=== PATIENT | female | born 2000 | race African-American/Black ===

== ENCOUNTER 2024-07-25 08:21 | Emergency (ER) | payer OTHER, SELFPAY ==
[2024-07-25 08:30] VITALS: BP 125/76; PULSE 111; RESP 20; TEMP 36.7; O2SAT 99
--- OUTSIDE RECORDS SUMMARY | 2024-07-25 08:30 | XMS_ITS | Referral Summary ---
Author Organization [facility] Address [address] [place] [address] Care Team Providers Care Auto Repair Technician Name Role Phone Viviane Mcneill MD Unavailable Unknown, Notinfile Primary Care Provider Unavail able Allergies No known active allergies Medications vit 80-lbrs-mfdbe-d tee 27mg iron- 800 mcg-250 mg capsule Take by mouth Active valACYclovir (VALTREX) 500 mg tablet Take 1 tablet (500 mg total) by mouth 2 (two) times a day 30 tablet 3 Active oxyCODONE (ROXICODONE) 5 mg immediate release tabletIndicatio ns:Pain Take 1 tablet (5 mg total) by mouth every 4 (four) hours as needed for pain 20 tablet 3 Active polyethylene glycol (MIRALAX) 17 gram/dose powder Take 17 g by mouth daily as needed (constipation) 238 g 3 Active acetaminophen 500 mg capsuleIndicati ons:Pain Take 2 capsules (1,000 mg total) by mouth every 6 (six) hours as needed (pain) 90 tablet 3 Active docusate sodium (COLACE) 100 mg capsuleIndicati ons:constipatio n,Stool Softener Take 1 capsule (100 mg total) by mouth 2 (two) times a day as needed for constipation 60 capsule 3 Active ibuprofen (ADVIL,MOTRIN) 600 mg tabletIndicatio ns:Cramps Take 1 tablet (600 mg total) by mouth every 6 (six) hours as needed for pain 90 tablet 3 Active HYDROcodone-edward taminophen (NORCO) 5-325 mg per tabletIndicatio ns:Pain Take 1 tablet by mouth every 6 (six) hours as needed for pain for up to 6 doses 6 tablet 4 Active doxylamine-pyri doxine, vit B6, (DICLEGIS) 10-10 mg tablet Take 1 tablet by mouth nightly as needed for nausea 30 tablet 4 Active ondansetron (ZOFRAN) 4 mg tablet Take 1 tablet (4 mg total) by mouth every 6 (six) hours 12 tablet 4 Active Active Problems Problem Noted Date Diagnosed Date Normal labor 06/08/2022 care following delivery 05/21 Overview (06/11/2022): # ID: Afebrile. No signs/symptoms of infection. #COVID-19: Test not indicated # Heme: EBL 600 mL. No symptoms acute blood loss anemia. POD#1 Hgb 8.9. # CV/Pulm: Vital signs stable, within normal limits. Normotensive # GI/: Tolerating PO. Voiding spontaneously. # Pain: Controlled with above regimen. # Post DVT prophylaxis: The patient has the following MAJOR risk factors none and the following MINOR risk factors delivery. SCDs ordered for VTE prophylaxis. # MOC: Depo-provera, given 06/09 # MOF: . Urine drug screen not indicated. Patient informed of results: N/A. # COVID Vaccination Status: Not previously received: I decline to share my reason for not getting the vaccine # Disposition: Follow up task sent to [facility] scheduling pool. Continue routine care. Pt plans d/c on POD#4 d/t baby not being cleared for discharge yet. #Yeast Infection: s/p 150mg PO Diflucan given in [facility] #BV Infection: Flagyl 500 mg BID ordered Breech presentation 06/01/2022 Overview (06/01/2022): Noted on 05/30 US and counseled Pt plans for primary C/S Assessment & Plan (06/01/2022 4:04 PM INTAKE COORDINATOR): Counseled on risks of C/S including increased risk of bleeding, infection, damage to other organs and scar tissue. growth restriction antepartum 04/09/2022 Overview (06/01/2022): History -Dating: LMP=1T US (LMP 09/09/21, 1T US on 12/09/21 @13w0d) -Genetic screening: NIPT high risk for T21 -No history of viral syndrome in -BP normotensive, no history of hypertension or other co-morbidities -US @22w2d EFW at 6%michelle [place] US 04/06: EFW 1170g (4%), AC 13%, driven by long bones (humerus + femur short), UAD PI 1.39 (98%, elevated), previously counseled Recommendations [x] Amniocentesis for DIGITAL STRATEGIST and CMV testing offered - declines [x] Offered serum CMV testing - declines - q3 week growths - 2x/weekly testing with 1x/weekly dopplers/BPP - [facility] precautions reviewed 05/30/2022: EFW 27%, AC 59%, PI wnl Chlamydia infection affecting , antepar fidencio 04/09/2022 Overview (06/01/2022): Positive on Pap 01/2022, s/p treatment [X] CHARLI in 4 weeks, 04/06/2022 Pap smear of cervix shows high risk HPV present 04/09/2022 Overview (04/09/2022): Pap 01/2022 NILM, HPV+ HPV testing not indicated based on her age, only recommended to be sent as reflex Follow up per her primary OBGYN. HSV infection 04/09/2022 Overview (06/01/2022): Documented in [facility] records. Patient denies this history. [] suppression medication sent to pharmacy, attempted to call pt after appt to discuss but no answer Maternal care for suspected chromosomal abnormality in fetus 03/15/2022 Overview (05/29/2022): History -NIPT high risk for trisomy 21 -AFP negative (0.78) -Carrier screening negative -s/p genetic counseling w/ Cora Bah -Declines amnio -previously counseled Recommendations [x] Offer amniocentesis - declines [x] options discussed [x] Medicine, referral placed - scheduled 04/24 at 10am via phone per pt preference Maternal varicella, non-immune 03/15/2022 Overview (04/09/2022): Per [facility] records, history of chicken pox at 5-6yo. For varivax PP. Supervision of high-risk , second trime ster 03/15/2022 Overview (06/02/2022): [x] Full [x] Blue Team- email for global sent 06/02 Referring Provider: Yariel Bird [phone] [] or Medicare Insurance [x] Dating Criteria: LMP 09/09/21 with ADRIANA 06/16/22 [x] Labs: Rh [B+], Ab [negative], Rubella [immune], HIV [non-reactive], HepBSAg [negative], RPR [non-reactive], Hep C [negative], Varicella [negative], GC/CT [GC negative/CT positive] [x] Genetic Screening: AFP negative, NIPT positive for Trisomy 21, CF negative [x] CBC/Hgb 11.9/34.9/plt 357 [x] UCx: 01/30/22 negative [x] Pap: 01/30/22: NILM; HPV positive, 16/18,14 negative [] LD ASA (if indicated) starting at 12 weeks: [x] EPDS [7]; PNBHS referral (if indicated) 2nd Tri Labs: [x] Anatomy ultrasound:normal, incomplete (lower ext) [] CBC/1hr gtt at 24-28wks: pt did not have done, accu check at 37w 77 [x] Flu Shot (Jan-Apr): declined s/p counseling 04/06 [] Tdap (27-36wks): [] COVID Vaccine: 3rd Tri Labs: [] CBC/HIV/RPR: discussed and ordered [x] GBS: positive [x] GC/CT (if indicated): negaitve/negative [] testing: recommend 2x/weekly in the setting of IGUR but pt has not been getting- will arrange for BPP and dopplers in 1 week Counseling [] MOD: C/S at 39 weeks for breech presentation, declines version- MFM RN to schedule- requested for 06/09 at 11:30 [x] Place of delivery: [facility]- pt request [x] MOC: Nexplanon [x] Method of feeding: likely formula but considering breast [x] Ssn/Ssbn Weapons Equipment Operator: discussed [] PP Depression Discussed: Immunizations Immunization Administration Dates Next Due Varicella 06/11/2022 Social History Tobacco Use Types Packs/Day Years Used Date Smoking Tobacco: Never Smokeless Tobacco: Never Tobacco Cessation:Counseling Given: Not Answered Social Connection and Isolat ion Panel [NHANES] Answer Date Recorded In a typical week, how many times do you talk on the phone with family, friends, or neighbors? More than three times a week 06/09/2022 How often do you get togethe r with friends or relatives? Three times a week 06/09/2022 How often do you attend chur ch or roman catholic services? Never 06/09/2022 Do you belong to any clubs o r organizations such as catholic groups, unions, fraternal or athletic groups, or school groups? No 06/09/2022 How often do you attend meet ings of the clubs or organizations you belong to? Never 06/09/2022 Are you , , di vorced, , never , or living with a partner? Never 06/09/2022 AUDIT-C Answer Date Recorded Q1: How often do you have a drink containing alc ohol? Never 06/08/2022 Average Number of Drinks Not on file 023 Frequency of Binge Drinking Not on file 05/21 Overall Financial Resource Strain (CARDIA) Answe r Date Recorded How hard is it for you to pa y for the very basics like food, housing, medical care, and heating? Not hard at all 06/09/2022 Hunger Vital Sign Answer Date Recorded Within the past 12 months, y ou worried that your food would run out before you got the money to buy more. Never true 06/09/19 23 Within the past 12 months, t he food you bought just didn't last and you didn't have money to get more. Never true 06/09/2022 PRAPARE - Transportation Answer Date Re corded In the past 12 months, has l ack of transportation kept you from medical appointments or from getting medications? No 05/22 In the past 12 months, has l ack of transportation kept you from meetings, work, or from getting things needed for daily living? No 06/09/2022 Housing Stability Vital Sign Answer Colt e Recorded In the last 12 months, was t here a time when you were not able to pay the mortgage or rent on time? No 06/09/2022 In the last 12 months, how many places have you lived? 0 06/09/2022 In the last 12 months, was t here a time when you did not have a steady place to sleep or slept in a halfway (including now)? No 06/09/2022 Personal Safety Answer Date Recorded Have you ever been in or are you currently in a harmful physical or emotional relationship or is someone making you feel afraid or unsafe? Denies 07/15/2023 Comments No Sex and Gender Information Value Date Recorded Sex Assigned at Not on file Legal Sex Female 12:23 PM INTAKE COORDINATOR Gender Identity Not on file Sexual Orientation Not on file Last Filed Vital Signs Vital Sign Reading Time Taken Comments Blood Pressure 136/71 07/15/2023 12:30 PM INTAKE COORDINATOR Pulse 78 07/15/2023 12:30 PM INTAKE COORDINATOR Temperature 37.1 C (98.7 F) 07/15/2023 9:11 AM INTAKE COORDINATOR Respiratory Rate 16 07/15/2023 12:30 PM INTAKE COORDINATOR Oxygen Saturation 100% 07/15/2023 12:30 PM INTAKE COORDINATOR Inhaled Oxygen Concentration - - Weight 77.1 kg (170 lb) 07/15/2023 9:11 AM INTAKE COORDINATOR Height 167.6 cm (5' 6 ) 07/15/2023 9:11 AM INTAKE COORDINATOR Body Mass Index 27.44 07/15/2023 9:11 AM INTAKE COORDINATOR Plan of Treatment Not on file Procedures Procedure Name Priority Date/Time Associated Diagnosis Comments HEPATITIS C ANTIBODY Routine 01/30/2022 from Last 3 Months or Most Recently Relevant to Health Maintenance Results * Hepatitis C antibody (01/30/2022) SCRIBED HCV ab negative Blood Yariel Bird MD LAB MICROBIOLOGY - GEN ERAL ORDERABLES Final Result from Last 3 Months or Most Recently Relevant to Health Maintenance Insurance [address] [place], [facility] [facility] Advance Directives For more information, please contact: [phone] * Full Code (Latest Code Status on File) Date Activated Date Inactivated Comments 06/09/2022 4:51 AM 06/11/2022 9:15 PM * Full Code Date Activated Date Inactivated Comments 06/08/2022 8:21 PM 06/09/2022 4:51 AM Full CPR in case of cardiopulmonary arrest Care Teams Auto Repair Technician Relationship Specialty Start Date End Date Unknown, Notinfile PCP - General 10/31/21 Viviane Mcneill MD [address] [place] [address] [address] [facility] [address] [place] [address] Family Medicine 04/16/17
--- OUTSIDE RECORDS SUMMARY | 2024-07-25 08:30 | XMS_ITS | Clinical Summary ---
Author Organization [facility] Address [address] [place] [address] Care Team Providers Care Convention Worker Name Role Phone Viviane Mcneill MD Unavailable Unknown, Notinfile Primary Care Provider Unavail able Allergies No known active allergies Medications vit 70-tmbl-fuyrl-d tee 27mg iron- 800 mcg-250 mg capsule [...] # Disposition: Follow up task sent to [facility] scheduling pool. Continue routine care. Pt plans d/c on POD#4 d/t baby not being cleared for discharge yet. #Yeast Infection: s/p 150mg PO Diflucan given in [facility] #BV Infection: Flagyl 500 mg BID ordered Breech presentation 06/01/2022 Overview (06/01/2022): Noted on 05/30 US and counseled Pt plans for primary C/S Assessment & Plan (06/01/2022 4:04 PM INFORMATION SERVICES VICE PRESIDENT): Counseled on risks of C/S including increased risk of bleeding, infection, damage to other organs and scar tissue. growth restriction antepartum 04/09/2022 Overview (06/01/2022): History -Dating: LMP=1T US (LMP 09/09/21, 1T US on 12/09/21 @13w0d) -Genetic screening: NIPT high risk for T21 -No history of viral syndrome in -BP normotensive, no history of hypertension or other co-morbidities -US @22w2d EFW at 6%michelle [place] US 04/06: EFW 1170g (4%), AC 13%, driven by long bones (humerus + femur short), UAD PI 1.39 (98%, elevated), previously counseled Recommendations [x] Amniocentesis for CASUALTY INSURANCE CLAIM ADJUSTER and CMV testing offered - declines [x] Offered serum CMV testing - declines - q3 week growths - 2x/weekly testing with 1x/weekly dopplers/BPP - [facility] precautions reviewed 05/30/2022: EFW 27%, AC 59%, [...] global sent 06/02 Referring Provider: Yariel Bird [phone] [] or Medicare Insurance [x] Dating Criteria: [...] feeding: likely formula but considering breast [x] Debone Supervisor: discussed [] PP Depression Discussed: Immunizations Immunization Administration Dates Next Due Varicella 06/11/2022 Medical History Medical History Date Comments HSV (herpes simplex virus) infection per records Maternal varicella, non-immune Social History Tobacco Use Types Packs/Day Years [...] often do you attend chur ch or methodist services? Never 06/09/2022 Do you belong to any clubs o r organizations such as sabianism groups, unions, fraternal or athletic groups, or [...] on file Legal Sex Female 12:23 PM INFORMATION SERVICES VICE PRESIDENT Gender Identity Not on file Sexual Orientation Not on file Obstetrics History Para Term AB IAB SAB Ectopic Multiple Livin g Live Births 2 1 1 1 1 0 1 1 Date Outcome GA Total Labor Labor/2nd/3rd Weight Sex Type Anes PTL Kiesha A1 A5 Name Clin 2020 SAB 2022 Term 38w 6d 0h 02m 0h 02m 3.41 kg (7 lb 8.3 oz) F C-Sec tion Spinal N Livin g 3 9 OUMOU ,GIRL JAErika Graham MD Delivery Location:[facility] Main C ampus ([facility] L AND D PROCEDURE) Last Filed Vital Signs Vital Sign Reading Time Taken Comments Blood Pressure 136/71 07/15/2023 12:30 PM INFORMATION SERVICES VICE PRESIDENT Pulse 78 07/15/2023 12:30 PM INFORMATION SERVICES VICE PRESIDENT Temperature 37.1 C (98.7 F) 07/15/2023 9:11 AM INFORMATION SERVICES VICE PRESIDENT Respiratory Rate 16 07/15/2023 12:30 PM INFORMATION SERVICES VICE PRESIDENT Oxygen Saturation 100% 07/15/2023 12:30 PM INFORMATION SERVICES VICE PRESIDENT Inhaled Oxygen Concentration - - Weight 77.1 kg (170 lb) 07/15/2023 9:11 AM INFORMATION SERVICES VICE PRESIDENT Height 167.6 cm (5' 6 ) 07/15/2023 9:11 AM INFORMATION SERVICES VICE PRESIDENT Body Mass Index 27.44 07/15/2023 9:11 AM INFORMATION SERVICES VICE PRESIDENT Plan of Treatment Health Maintenance Due Date Last Done Comments Cervical Cancer Screening 1999 Depression Screening 1999 Regular Well Visit/Exam 18-64 2017 Varicella Vaccines (2 of 2 - 13+ 2-dose series) 07/09/2022 06/11/2022 DTaP/Tdap/Td Vaccine (5 - Td or Tdap) 02/14/2023 02/14/2013, 04/30/2007, 10/17/2006, Additional history exists Influenza Vaccine (#1) 2024 02/14/2013 Hepatitis B Screening Completed 10/17/2006 , 10/18/2005, 03/01/2005 HPV Vaccines Completed 02/19/2014, 03/23, 01/01/2009 Hepatitis C Screening Completed 01/30/2022 Pneumococcal vaccine <65 Aged Out No longer eligible based on patient's age to complete this topic Procedures Procedure Name Priority Date/Time Associated Diagnosis Comments HEPATITIS C ANTIBODY Routine 01/30/2022 from Last 3 Months or Most Recently Relevant to Health Maintenance Results * Hepatitis C antibody (01/30/2022) SCRIBED HCV ab negative Blood us Yariel Bird MD LAB MICROBIOLOGY - GEN ERAL ORDERABLES Final Result from Last 3 Months or Most Recently Relevant to Health [place] [id number] [employer] [facility] Advance Directives For more information, please contact: [phone] * Full Code (Latest Code Status on File) Date Activated Date Inactivated Comments 06/09/2022 4:51 AM 06/11/2022 9:15 PM * Full Code Date Activated Date Inactivated Comments 06/08/2022 8:21 PM 06/09/2022 4:51 AM Full CPR in case of cardiopulmonary arrest Care Teams Convention Worker Relationship Specialty Start Date End Date Unknown, Notinfile PCP - General 10/31/21 Viviane Mcneill MD [address] [facility] [place] [address] Family Medicine 04/16/17
--- OUTSIDE RECORDS SUMMARY | 2024-07-25 08:30 | XMS_ITS | Clinical Summary ---
Author Organization [facility] Address [address] [place] [id number] Care Team Providers Care Community Recreation Programmer Name Role Phone None, Provider MD Primary Care Provider Unavaila ble Allergies No known active allergies Medications No known medications Social History Tobacco Use Types Packs/Day Years Used Date Smoking Tobacco: Never Smokeless Tobacco: Never Tobacco Cessation:Counseling Given: Not Answered Alcohol Use Standard Drinks/Week Comments Never 0 (1 standard drink = 0.6 oz pur e alcohol) Humiliation, Afraid, Rape, and Kick questionnair e Answer Date Recorded Within the last year, have y ou been afraid of your partner or ex-partner? No 04/17/2022 Within the last year, have y ou been humiliated or emotionally abused in other ways by your partner or ex-partner? No Within the last year, have y ou been kicked, hit, slapped, or otherwise physically hurt by your partner or ex-partner? No 04/17/2022 Within the last year, have y ou been raped or forced to have any kind of sexual activity by your partner or ex-partner? No 04/17/2022 Estimated Date of Delivery Comme nts Yes 02/06/2024 Sex and Gender Information Value Date Recorded Sex Assigned at Not on file Legal Sex Female 12:35 PM CDT Gender Identity Not on file Sexual Orientation Not on file Last Filed Vital Signs Vital Sign Reading Time Taken Comments Blood Pressure 112/66 08/17/2023 5:00 PM CDT Pulse 96 08/17/2023 5:00 PM CDT Temperature 36.6 C (97.9 F) 08/17/2023 1:49 PM CDT Respiratory Rate 18 08/17/2023 5:00 PM CDT Oxygen Saturation 100% 08/17/2023 5:00 PM CDT Inhaled Oxygen Concentration - - Weight 77.1 kg (170 lb) 08/17/2023 1:49 PM CDT Height 167.6 cm (5' 6 ) 08/17/2023 1:49 PM CDT Body Mass Index 27.44 08/17/2023 1:49 PM CDT Plan of Treatment Health Maintenance Due Date Last Done Comments Cervical Cancer Screening Pap Smear (Age 21 to 29) Every 3 Years 1999 Cervical Cancer Screening 1999 Annual Physical 2002 Hepatitis C 2017 DTaP, Tdap and Td Vaccines (5 - Td or Tdap) 02/14/2023 02/14/2013, 04/30/2007, 10/17/2006, Additional history exists COVID-19 Vaccine (2023- season) 2024 Influenza Adult (#1) 2024 RSV Immunization or 60+ Years (1 - 1-dose 75+ series) 2074 Hepatitis B Vaccines Completed 10/17/2006, 10/18/2005, 03/01/2005 HPV Vaccines Completed 02/19/2014, 03/23, 01/01/2009 Meningococcal Vaccine Completed 04/13/2017, 013 Chlamydia Screening Females ages 16-24 Discontinued 04/17/2022 Meningococcal B Vaccine Aged Out No l onger eligible based on patient's age to complete this topic Pneumococcal Vaccine: Pediatrics (0 to 5 Years) and At-Risk Patients (6 to 64 Years) Aged Out No longer eligible based on patient's age to complete this topic RSV Immunizations Under 20 Months Aged Out No longer eligible based on patient's age to complete this topic Procedures Procedure Name Priority Date/Time Associated Diagnosis Comments CHLAMYDIA GC RNA STAT 04/17/2022 2:50 PM SHOE LINING FITTER ([facility]) from Last 3 Months or Most Recently Relevant to Health Maintenance Results * CHLAMYDIA GC RNA (04/17/2022 2:50 PM SHOE LINING FITTER) SPEC DESCRIPTION VAGINAL SPECIMEN 04/17/2022 2:58 PM SHOE LINING FITTER [facility] CHLAMYDIA RNA TMA NEGATIVE NEGATIVE 022 12:32 PM SHOE LINING FITTER [facility] Comment:PERFORMED BY NUCLEIC ACID AMPLIFICATION N.GONORRHOEAE RNA TMA NEGATIVE NEGATIVE 04/18/2022 12:32 PM SHOE LINING FITTER [facility] Comment:PERFORMED BY NUCLEIC ACID AMPLIFICATION VAGINAL STRUCTURE / Unknown 04/17/2022 2:50 PM SHOE LINING FITTER Douglas Pelaez MD MICROBIOLOGY - GENERAL ORD ERABLES Final Result [facility] [address] [place] [address], [place] [phone] [facility] [address] [place] [address], [place] [phone] from Last 3 Months or Most Recently Relevant to Health Maintenance Insurance [address] [address] Care Teams Community Recreation Programmer Relationship Specialty Start Date End Date None, Provider, PCP - General UNKNOWN PHYSICIAN SPECIALTY 03/05/22
--- OUTSIDE RECORDS SUMMARY | 2024-07-25 08:30 | XMS_ITS | Clinical Summary ---
Author Organization 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 10 Tab 05/16/2017 Active HYDROcodone-edward taminophen (NORCO) 5-325 MG TabletIndicatio ns:Closed fracture of tooth, initial encounter Take 1-2 Tablets by mouth every 6 hours as needed for Moderate or more severe pain. 12 Tablet 02/26/2021 Active Encounters Date Type Department Care Team Description 07/14/2024 Transcribe Orders [facility] Scheduling [address] [place] [address] Yariel Bird Pelvic and perineal pain (Primary Dx) from Last 3 Months Social History Tobacco Use Types Packs/Day Years Used Date Smoking Tobacco: Never Smokeless Tobacco: Never Alcohol Use Standard Drinks/Week Comments Yes 0 (1 standard drink = 0.6 oz pur e alcohol) occassionaly Comments No Sex and Gender Information Value Date Recorded Sex Assigned at Not on file Legal Sex Female 9:34 PM CDT Gender Identity Not on file Sexual Orientation Not on file Last Filed Vital Signs Vital Sign Reading Time Taken Comments Blood Pressure 118/64 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 Pulse 98 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 Temperature 37 C (98.6 F) 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 Respiratory Rate 16 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 Oxygen Saturation 100% 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 Inhaled Oxygen Concentration - - Weight 78 kg (172 lb) 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 Height 167.6 cm (5' 6 ) 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 Body Mass Index 27.76 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 Plan of Treatment Health Maintenance Due Date Last Done Comments Hepatitis C Virus (HCV) Screening 1999 Pap Smear 01/28/2020 Influenza Immunization (#1) 2024 02/14/2013 SARS-COV-2 Immunization ( season) 2024 Respiratory Syncytial Virus (RSV) Immunization (Adult) (1 - 1-dose 75+ series) 2074 Hepatitis B Immunization Completed 007, 10/18/2005, 03/01/2005 DTaP/Tdap/Td Immunization Discontinued 2012, 04/30/2007, 10/17/2006, Additional history exists TdaP Immunization Completed 02/14/2013 Human Papillomavirus (HPV) Immunization Completed 02/19/2014, 04/19/2011, 01/01/2009 Meningococcal Immunization (ACWY) Completed 04/13/2017, 02/14/2013 Pneumococcal Immunization Combined Aged Out No longer eligible based on patient's age to complete this topic Rotavirus Immunization Aged Out No lo nger eligible based on patient's age to [place] [address] [place] [address] MEDICAID [employer] [facility] Care Teams Plugger Man Relationship Specialty Start Date End Date Provider, None MIKAEL PCP - General 04/02/17
--- OUTSIDE RECORDS SUMMARY | 2024-07-25 08:39 | XMS_ITS | Data Portability ---
[facility] [address] [place] [address] Assessment No assessment recorded. Plan of Treatment Reminders Order Date Submit Date Provider Last Modified By Organization Details Last Modified Time Details Appointments None record ed. Lab cytolo gy report , thin prep, smear or scrapi ng, cervic al or vagina l 2024 025 [facility] 2022 Angela Becerra, [facility] [address], [place], [address], 5 11:21:57 HBsAg (hepat itis B surfac e Ag), EIA, serum 2024 025 [facility], [address] [place] [address] 2, [place], [address], 5 11:14:01 HIV 1 + 2, meanin gful use set 2024 025 [facility], [address] [place] [address] 2, [place], [address], 5 11:14:04 Hepati tis C IgG Ab, qual, serum 2024 025 [facility], [address] [place] [address] 2, [place], [address], 5 11:13:59 RPR (rapid plasma reagin ), serum 2024 025 [facility], [address] [place] [address] 2, [place], [address], 5 11:14:02 urinal ysis, dipsti ck 2023 024 [email or web address] In-Office Order, Internal Use Only DO Not Attach Compendium DO Not Attach Compendium, Do Not Delete/merge, [id number] 4 13:59:28 hemogl obin (Hb) electr ophore sis, blood 2023 024 [facility], [address] [facility], [facility] 2, [place], [address], 4 15:20:17 HIV 1 + 2, meanin gful use set 2023 024 [email or web address] [facility], [address] [facility], [facility] 2, [place], [address], 4 09:46:46 varice lla zoster virus IgG Ab, QN, IA, serum 2023 024 [facility], [address] [facility], [facility] 2, [place], [address], 4 15:20:18 urinal ysis comple te, reflex cultur e 2023 024 [facility], [address] [facility], [facility] 2, [place], [address], 4 15:20:18 drug screen , urine 2023 024 [facility], [address] [facility], [facility] 2, [place], [address], 4 15:20:18 CFTR gene mutati ons found, blood or tissue 2023 024 [email or web address], [address] [facility], [facility] 2, [place], [address], 4 15:20:18 Hepati tis C IgG Ab, qual, serum 2023 024 [facility], [address] [facility], [facility] 2, [place], [address], 4 15:20:19 prenat al panel 2023 024 [facility], [address] [facility], [facility] 2, [place], [address], 4 15:20:19 HCG, intact + beta subuni t, quant, serum or plasma 2023 024 [email or web address] [facility], 2022 Angela Becerra, [address], [place], [address], 4 16:31:14 chlamy mariah tracho matis + neisse claus gonorr hoeae + tricho monas vagina lis DNA panel, COURTNEY+pr obe, unspec ified specim en 2023 024 [place] [facility], 2022 Angela Becerra, [address], [place], [address], 4 07:14:53 urinal ysis, dipsti ck 2022 023 [email or web address] In-Office Order, Internal Use Only DO Not Attach Compendium DO Not Attach Compendium, Do Not Delete/merge, [id number] 3 15:13:54 cytolo gy report , thin prep, smear or scrapi ng, cervic al or vagina l 2022 023 JESSICA [facility], 2022 Angela Becerra, [address], [place], [address], 3 16:14:22 TSH + free T4, serum 2022 023 JESSICA [facility], 2022 Angela Becerra, [address], [place], [address], 3 11:12:47 HIV 1 + 2, meanin gful use set 2022 023 [place] [facility], 2022 Angela Becerra, [address], [place], [address], 3 11:12:49 RPR (rapid plasma reagin ), serum 2022 023 JESSICASHANAE [facility], 2022 Angela Becerra, [address], [place], [address], 3 11:12:48 HBsAg (hepat itis B surfac e Ag), EIA, serum 2022 023 [facility], 20[facility] Angela Becerra, [address], [place], [address], 3 11:12:48 Hepati tis C IgG Ab, qual, serum 2022 023 [place], [facility] Angela Becerra, [address], [place], [address], 3 11:12:45 HSV 2 IgG Ab, QN, IA, serum 2022 023 [facility], 2022 Angela Becerra, [address], [place], [address], 3 11:12:46 bacter ial vagino sis panel, vagina l 2021 022 [facility], 2022 Angela Becerra, [address], [place], [address], 2 07:12:44 candid a paraps ilosis DNA, genita l 2021 022 JESSICA [facility], 2022 Angela Becerra, [address], [place], [address], 2 07:12:44 TSH + free T4, serum 2021 022 [facility]HANAE [facility], 2022 Angela Becerra, [address], [place], [address], 2 11:15:49 CBC w/ auto diff 2021 JESSICA [facility], 2022 Angela Becerra, [address], [place], [address], 2 11:15:50 aneupl oidy risk and X & Y analys is, chromo some specif ic circul ating cell free (CCF) DNA, matern al serum 2021 JESSICA [facility], 2022 Angela Becerra, [address], [place], [address], 2 16:12:17 afp (alpha -fetop rotein ) panel, matern al screen , serum 2021 JESSICA [facility], 2022 Angela Becerra, [address], [place], [address], 2 07:12:42 obstet chaparro screen , serum or blood 2021 JESSICA [facility], 2022 Angela Becerra, [address], [place], [address], 2 16:12:16 hemogl obin (Hb) electr ophore sis, blood 2021 022 JESSICA [facility], 2022 Angela Becerra, [address], [place], [address], 2 16:12:15 HIV 1 + 2, meanin gful use set 2021 JESSICA [facility], 2022 Angela Becerra, [address], [place], [address], 2 16:12:19 varice lla zoster virus IgG Ab, QN, IA, serum 2021 JESSICA [facility], 2022 Angela Becerra, [address], [place], [address], 16:12:19 urinal ysis comple te, reflex cultur e 2021 [facility], 2022 Angela Becerra, [address], [place], [address], 07:11:57 drug screen , urine 2021 [facility], 2022 Angela Becerra, [address], [place], [address], 07:11:57 cf (cysti c fibros is) profil e 2021 [facility], 2022 Angela Becerra, [address], [place], [address], 16:12:18 hepati tis C Ab, signal -to-cu toff, serum or plasma 2021 [facility], 2022 Angela Becerra, [address], [place], [address], 16:12:16 cytolo gy report , thin prep, smear or scrapi ng, cervic al or vagina l 2021 [facility], 2022 Angela Becerra, [address], [place], [address], 07:12:33 urinal ysis, dipsti ck 2021 [place] [address] In-Office Order, Internal Use Only DO Not Attach Compendium DO Not Attach Compendium, Do Not Delete/merge, [id number] 15:11:12 pregna ncy test, urine 2021 [place] [address] In-Office Order, Internal Use Only DO Not Attach Compendium DO Not Attach Compendium, Do Not Delete/merge, [id number] 2 12:35:47 HCG, intact + beta subuni t, quant, serum or plasma 2021 022 [place] [facility], 2022 Angela Becerra, [place] [address], [place], [address], 2 07:12:07 Referral None record ed. Procedures None record ed. Surgeries None record ed. Imaging US, pelvis , transa bdomin al + transv aginal 2024 025 [place] [address] [facility]) Scheduling, [address] [place], [address], 5 16:25:38 US, obstet chaparro, 2nd trimes ter 2023 024 [facility]uling, [address] [place], [address], 4 17:39:41 US, pelvis , transa bdomin al + transv aginal [address] [facility]) Scheduling, [address] [place], [address], 4 17:30:04 US, obstet chaparro, matern al evalua tion + anatom y 2021 022 [place] [facility]) Scheduling, [address] [place], [address], 2 17:45:31 US, obstet chaparro, 1st trimes ter 2021 022 [facility] ([facility]), [address] [place], [address], 2 17:22:49 Medication Orders Sprint ec (28) 0.25 mg-35 mcg tablet 2022 023 [email or web address] Not available 11:31:33 Patient TargetsNo targets recorded. Patient Instructions Encounter Date Encounter Id Patient Instructions Last Modified By Organization Details Last Modified Time 01/30/2022 [id number] edinburgh depression scale* derek Not available 01/30/2022 17:13:27 01/01/2023 [id number] heavy menstrual periods: care instructions christophe Not available 01/01/2023 15:13:53 07/14/2024 [id number] A healthy lifestyle: care instructions christophe Not available 07/14/2024 16:25:38 Quitting Tobacco : Care Instructions [place] [id number] Not available 07/14/2024 16:25:38 Reason for Referral None Reported. Results Created Date Observation Date Name Description Value Unit Range Abnormal Flag Note LastModifiedBy Organization Detail LastModifiedTime 12/02/1912/02/2021 HCG,B ETA SUBUN IT, QNT HCG,beta subunit,qnt, serum 360179 mIU/m L Femal e (Non- pregn ant) 0 - 5 (Post menop ausal ) 0 - 8 Femal e (Preg nant) Weeks of Gesta tion 3 6 - 71 4 10 - 750 5 001 - 7338 6 158 - 17426 7 1077 -3654 63 8 80899 -3456 71 9 03086 -1514 10 10 62711 -1869 77 12 41712 -2106 12 14 38726 - 31185 15 40341 - 77592 16 4703 - 93982 17 0561 - 81612 18 2099 - 20001 Resul ts confi rmed on dilut ion. Leyla ECLIA metho dolog y Not Available [facility] ([facility]) [address] [facility], [place], [address], 12/02/2021 07:12:07 12/02/1912/01/2021 pregn jeancarlos test, urine HCG negati ve Not Available In-Office Order Internal Use Only DO Not Attach Compendium DO Not Attach Compendium, Do Not Delete/merge, [id number] 12/01/2021 08:49:26 01/31/2001/31/2022 TSH+F REE T4 TSH 1.680 uIU/m L 0.450- 4.500 Not Available [facility] ([facility]) [address] [place], [address], 01/31/2022 11:15:49 01/31/20 22 01/31/2022 TSH+F REE T4 T4,free(dire ct) 1.15 NG/dL 0.82-1 .77 Not Available [facility] ([facility]) [address] [place], [address], 01/31/2022 11:15:49 01/31/20 22 01/31/2022 CBC WITH DIFFE RENTI AL/PL ATELE T WBC 15.0 x10e3 /uL 3.4-10 .8 above high normal Not Available [facility] ([facility]) [address] [place], [address], 01/31/2022 11:15:50 01/31/20 22 01/31/2022 CBC WITH DIFFE RENTI AL/PL ATELE T RBC 4.03 x10e6 /uL 3.77-5 .28 Not Available [facility] ([facility]) [address] [place], [address], 01/31/2022 11:15:50 01/31/20 22 01/31/2022 CBC WITH DIFFE RENTI AL/PL ATELE T hemoglobin 12.2 g/dL 11.1-1 5.9 Not Available [facility] ([facility]) [address] [place], [address], 01/31/2022 11:15:50 01/31/20 22 01/31/2022 CBC WITH DIFFE RENTI AL/PL ATELE T hematocrit 36.2 % 34.0-4 6.6 Not Available [facility] ([facility]) [address] [place], [address], 01/31/2022 11:15:50 01/31/20 22 01/31/2022 CBC WITH DIFFE RENTI AL/PL ATELE T MCV 90 fL 79-97 Not Available [facility] ([facility]) [address] [facility], [place], [address], 01/31/2022 11:15:50 01/31/20 22 01/31/2022 CBC WITH DIFFE RENTI AL/PL ATELE T MCH 30.3 pg 26.6-3 3.0 Not Available [facility] ([facility]) [address] [facility], [place], [address], 01/31/2022 11:15:50 01/31/20 22 01/31/2022 CBC WITH DIFFE RENTI AL/PL ATELE T MCHC 33.7 g/dL 31.5-3 5.7 Not Available [facility] ([facility]) [address] [facility], [place], [address], 01/31/2022 11:15:50 01/31/20 22 01/31/2022 CBC WITH DIFFE RENTI AL/PL ATELE T RDW 12.8 % 11.7-1 5.4 Not Available [facility] ([facility]) [address] [place], [address], 01/31/2022 11:15:50 01/31/20 22 01/31/2022 CBC WITH DIFFE RENTI AL/PL ATELE T platelets 341 x10e3 /uL 150-45 0 Not Available [facility] ([facility]) [address] [place], [address], 01/31/2022 11:15:50 01/31/20 22 01/31/2022 CBC WITH DIFFE RENTI AL/PL ATELE T neutrophils 79 % not estab. Not Available [facility] ([facility]) [address] [place], [address], 01/31/2022 11:15:50 01/31/20 22 01/31/2022 CBC WITH DIFFE RENTI AL/PL ATELE T lymphs 14 % not estab. Not Available [facility] ([facility]) [address] [facility], [place], [address], 01/31/2022 11:15:50 01/31/20 22 01/31/2022 CBC WITH DIFFE RENTI AL/PL ATELE T monocytes 5 % not estab. Not Available [facility] ([facility]) [address] [facility], [place], [address], 01/31/2022 11:15:50 01/31/20 22 01/31/2022 CBC WITH DIFFE RENTI AL/PL ATELE T eos 1 % not estab. Not Available [facility] ([facility]) [address] [facility], [place], [address], 01/31/2022 11:15:50 01/31/20 22 01/31/2022 CBC WITH DIFFE RENTI AL/PL ATELE T basos 0 % not estab. Not Available [facility] ([facility]) [address] [facility], [place], [address], 01/31/2022 11:15:50 01/31/20 22 01/31/2022 CBC WITH DIFFE RENTI AL/PL ATELE T immature cells CORROSION TECHNICIAN Not Available [facility] ([facility]) [address] [facility], [place], [address], 01/31/2022 11:15:50 01/31/20 22 01/31/2022 CBC WITH DIFFE RENTI AL/PL ATELE T neutrophils (absolute) 11.9 x10e3 /uL 1.4-7. 0 above high normal Not Available [facility] ([facility]) [address] [place], [address], 01/31/2022 11:15:50 01/31/20 22 01/31/2022 CBC WITH DIFFE RENTI AL/PL ATELE T lymphs (absolute) 2.2 x10e3 /uL 0.7-3. 1 Not Available [facility] ([facility]) [address] [facility], [place], [address], 01/31/2022 11:15:50 01/31/20 22 01/31/2022 CBC WITH DIFFE RENTI AL/PL ATELE T monocytes(ab solute) 0.7 x10e3 /uL 0.1-0. 9 Not Available [facility] ([facility]) [address] [facility], [place], [address], 01/31/2022 11:15:50 01/31/20 22 01/31/2022 CBC WITH DIFFE RENTI AL/PL ATELE T eos (absolute) 0.1 x10e3 /uL 0.0-0. 4 Not Available [facility] ([facility]) [address] [facility], [place], [address], 01/31/2022 11:15:50 01/31/20 22 01/31/2022 CBC WITH DIFFE RENTI AL/PL ATELE T baso (absolute) 0.0 x10e3 /uL 0.0-0. 2 Not Available [facility] ([facility]) [address] [facility], [place], [address], 01/31/2022 11:15:50 01/31/20 22 01/31/2022 CBC WITH DIFFE RENTI AL/PL ATELE T immature granulocytes 1 % not estab. Not Available [facility] ([facility]) [address] [facility], [place], [address], 01/31/2022 11:15:50 01/31/20 22 01/31/2022 CBC WITH DIFFE RENTI AL/PL ATELE T immature grans (abs) 0.1 x10e3 /uL 0.0-0. 1 Not Available [facility] ([facility]) [address] [facility], [place], [address], 01/31/2022 11:15:50 01/31/20 22 01/31/2022 CBC WITH DIFFE RENTI AL/PL ATELE T NRBC CORROSION TECHNICIAN Not Available [facility] ([facility]) [address] [place], [place], [address], 01/31/2022 11:15:50 01/31/20 22 01/31/2022 CBC WITH ZHANE MORENO AL/MARIBEL ATELE T hematology comments: CORROSION TECHNICIAN Not Available [facility] ([facility]) [address], [place], [address], 01/31/2022 11:15:50 01/31/20 22 01/31/2022 AFP, SERUM , OPEN SPINA BIFID A results CORROSION TECHNICIAN Not Available [facility] ([facility]) [address] [place], [address], 02/01/2022 07:12:41 01/31/2001/31/2022 AFP, SERUM , OPEN SPINA BIFID A test results: TNP Pleas e refer to the [facility] wing speci men for addit ional lab resul ts. For resul ts refer to 255-3 16-23 69-0. Not Available [facility] ([facility]) [address], [place], [address], 02/01/2022 07:12:41 01/31/20 22 01/31/2022 AFP, SERUM , OPEN SPINA BIFID A gest. age on collection date CORROSION TECHNICIAN Not Available [facility] ([facility]) [address] [place], [address], 02/01/2022 07:12:41 01/31/2001/31/2022 AFP, SERUM , OPEN SPINA BIFID A gestat. age based on CORROSION TECHNICIAN Not Available [facility] ([facility]) [address] [place], [address], 02/01/2022 07:12:41 01/31/20 22 01/31/2022 AFP, SERUM , OPEN SPINA BIFID A maternal age at will[age] CORROSION TECHNICIAN Not Available [facility] ([facility]) [address] [place], [address], 02/01/2022 07:12:41 01/31/20 22 01/31/2022 AFP, SERUM , OPEN SPINA BIFID A race CORROSION TECHNICIAN Not Available [facility] ([facility]) [address] [facility] [place], [address], 02/01/2022 07:12:41 01/31/20 22 01/31/2022 AFP, SERUM , OPEN SPINA BIFID A weight CORROSION TECHNICIAN Not Available [facility] ([facility]) [address] [place], [address], 02/01/2022 07:12:41 01/31/20 22 01/31/2022 AFP, SERUM , OPEN SPINA BIFID A insulin dep diabetes CORROSION TECHNICIAN Not Available [facility] ([facility]) [address] [place], [address], 02/01/2022 07:12:41 01/31/20 22 01/31/2022 AFP, SERUM , OPEN SPINA BIFID A multiple gestation CORROSION TECHNICIAN Not Available [facility] ([facility]) [address] [place], [address], 02/01/2022 07:12:41 01/31/20 22 01/31/2022 AFP, SERUM , OPEN SPINA BIFID A AFP value TNP Test not perfo rmed Not Available [facility] ([facility]) [address] [place], [address], 02/01/2022 07:12:41 01/31/2001/31/2022 AFP, SERUM , OPEN SPINA BIFID A AFP MOM CORROSION TECHNICIAN Not Available [facility] ([facility]) [address] [place], [address], 02/01/2022 07:12:41 01/31/20 22 01/31/2022 AFP, SERUM , OPEN SPINA BIFID A OSBR risk 1 in CORROSION TECHNICIAN Not Available [facility] ([facility]) [address] [place], [address], 02/01/2022 07:12:41 01/31/20 22 01/31/2022 AFP, SERUM , OPEN SPINA BIFID A interpretati on CORROSION TECHNICIAN Not Available [facility] ([facility]) [address] [facility], [place], [address], 02/01/2022 07:12:41 01/31/20 22 01/31/2022 AFP, SERUM , OPEN SPINA BIFID A comment: CORROSION TECHNICIAN Not Available [facility] ([facility]) [address] [facility], [place], [address], 02/01/2022 07:12:41 01/31/2001/31/2022 AFP, SERUM , OPEN SPINA BIFID A tracking CORROSION TECHNICIAN Not Available [facility] ([facility]) [address] [facility], [place], [address], 02/01/2022 07:12:41 01/31/2001/31/2022 AFP, SERUM , OPEN SPINA BIFID A pdf CORROSION TECHNICIAN Not Available [facility] ([facility]) [address] [facility] [place], [address], 02/01/2022 07:12:41 01/31/2001/31/[address] PROBL EM request problem TNP Pleas e refer to the [facility] speci men for addit ional lab resul ts. TEST: [id number] 1 AFP, Serum , Open Spina Bifid a For resul ts refer to 255-3 16-23 69-0. Not Available [facility] ([facility]) [address] [facility], [place], [address], 02/01/2022 07:12:42 01/31/2001/31/2022 BACTE RIAL VAGIN OSIS, COURTNEY atopobium vaginae High - 2 score abnormal Not Available [facility] ([facility]) [address] [facility] [place], [address], 02/01/2022 07:12:44 01/31/20 01/31/2022 BACTE RIAL VAGIN OSIS, COURTNEY bvab 2 High - 2 score abnormal Not Available [facility] ([facility]) [address] [place], [address], 02/01/2022 07:12:44 01/31/20 22 01/31/2022 BACTE RIAL VAGIN OSIS, COURTNEY megasphaera 1 High - 2 score abnormal Calcu late total score by marco live the 3 indiv idual bacte rial vagin osis (BV) marke r score s toget her. Total score is inter prete d as follo ws: Total score 0-1: Indic ates the absen ce of BV. Total score 2: Indet ermin ate for BV. Addit ional clini jennie data shoul d be evalu ated to estab casandra a diagn osis. Total score 3-6: Indic ates the prese nce of BV. This test was devel oped and its perfo rmanc e augustus cteri stics deter mined by [facility]. It has not been clear ed or appro danna by the Food and Drug Admin istra tion. Not Available [facility] ([facility]) [address] [facility], [place], [address], 02/01/2022 07:12:44 01/31/20 22 02/01/2022 C ALBIC ANS + C GLABR IVÁN, COURTNEY stacy albicans, COURTNEY Positi ve negati ve abnormal Not Available [facility] ([facility]) [address] [place], [address], 02/01/2022 07:12:44 01/31/20 22 02/01/2022 C ALBIC ANS + C GLABR IVÁN, COURTNEY stacy glabrata, COURTNEY Negati ve negati ve Not Available [facility] ([facility]) [address] [place], [address], 02/01/2022 07:12:44 01/31/20 22 01/31/2022 MICRO SCOPI C EXAMI NATIO N WBC 11-30 /hpf 0-5 abnormal Not Available [facility] ([facility]) [address] [facility], [place], [address], 02/03/2022 07:11:56 01/31/20 22 01/31/2022 MICRO SCOPI C EXAMI NATIO N RBC 0-2 /hpf 0-2 Not Available [facility] ([facility]) [address] [facility], [place], [address], 02/03/2022 07:11:56 01/31/20 22 01/31/2022 MICRO SCOPI C EXAMI NATIO N epithelial cells (non renal) >10 /hpf 0-10 abnormal Not Available [facility] ([facility]) [address] [facility], [place], [address], 02/03/2022 07:11:56 01/31/20 22 01/31/2022 MICRO SCOPI C EXAMI NATIO N casts None seen /lpf nonese en Not Available [facility] ([facility]) [address] [facility], [place], [address], 02/03/2022 07:11:56 01/31/2001/31/2022 MICRO SCOPI C EXAMI NATIO N bacteria Many nonese en/few abnormal Not Available [facility] ([facility]) [address] [place], [address], 02/03/2022 07:11:56 01/31/20 22 01/31/2022 UA/M W/RFL X CULTU RE, ROUTI NE specific gravity 1.023 1.005- 1.030 Not Available [facility] ([facility]) [address] [place], [address], 02/03/2022 07:11:57 01/31/2001/31/2022 UA/M W/RFL X CULTU RE, ROUTI NE pH 7.0 5.0-7. 5 Not Available [facility] ([facility]) [address] [place], [address], 02/03/2022 07:11:57 01/31/20 22 01/31/2022 UA/M W/RFL X ELMER VERDIN urine-color Yellow yellow Not Available [facility] ([facility]) [address] [facility], [place], [address], 02/03/2022 07:11:57 01/31/2001/31/2022 UA/M W/RFL X ELMER VERDIN appearance Cloudy clear abnormal Not Available [facility] ([facility]) [address] [facility], [place], [address], 02/03/2022 07:11:57 01/31/2001/31/2022 UA/M W/RFL X ELMER VERDIN WBC esterase 2+ negati ve abnormal Not Available [facility] ([facility]) [address] [facility], [place], [address], 02/03/2022 07:11:57 01/31/20 22 01/31/2022 UA/M W/RFL X ELMER VERDIN protein 1+ negati ve/tra ce abnormal Not Available [facility] ([facility]) [address] [place], [address], 02/03/2022 07:11:57 01/31/20 22 01/31/2022 UA/M W/RFL X ELMER VERDIN glucose Negati ve negati ve Not Available [facility] ([facility]) [address] [place], [address], 02/03/2022 07:11:57 01/31/20 22 01/31/2022 UA/M W/RFL X ELMER VERDIN ketones Negati ve negati ve Not Available [facility] ([facility]) [address] [place], [address], 02/03/2022 07:11:57 01/31/20 22 01/31/2022 UA/M W/RFL X CULTU RE, ROUTI NE occult blood Negati ve negati ve Not Available [facility] ([facility]) [address] [place], [address], 02/03/2022 07:11:57 01/31/20 22 01/31/2022 UA/M W/RFL X CULTU RE, ROUTI NE bilirubin Negati ve negati ve Not Available [facility] ([facility]) [address] [place], [address], 02/03/2022 07:11:57 01/31/2001/31/2022 UA/M W/RFL X CULTU RE, ROUTI NE urobilinogen ,semi-qn 0.2 mg/dL 0.2-1. 0 Not Available [facility] ([facility]) [address] [place], [address], 02/03/2022 07:11:57 01/31/20 22 01/31/2022 UA/M W/RFL X CULTU RE, ROUTI NE nitrite, urine Negati ve negati ve Not Available [facility] ([facility]) [address] [place], [address], 02/03/2022 07:11:57 01/31/20 22 01/31/2022 UA/M W/RFL X CULTU RE, ROUTI NE microscopic examination See below: Micro scopi c was indic ated and was perfo rmed. Not Available [facility] ([facility]) [address] [place], [address], 02/03/2022 07:11:57 01/31/20 22 01/31/2022 UA/M W/RFL X CULTU RE, ROUTI NE urinalysis reflex Commen t This speci men has refle xed to a Urine Cultu re. Not Available [facility] ([facility]) [address] [place], [address], 02/03/2022 07:11:57 01/31/20 22 01/31/2022 [id number] 9 10 DRUG- BUND amphetamines , urine Negati ve NG/mL cutoff =1000 Amphe tamin e test inclu jen Amphe tamin e and Metha mphet amine . Not Available [facility] ([facility]) [address] [facility], [place], [address], 02/03/2022 07:11:57 01/31/20 22 01/31/2022 [id number] 9 10 DRUG- BUND barbiturates Negati ve NG/mL cutoff =200 Not Available [facility] ([facility]) [address] [facility], [place], [address], 02/03/2022 07:11:57 01/31/20 22 01/31/2022 [id number] 9 10 DRUG- BUND benzodiazepi jeffery Negati ve NG/mL cutoff =200 Not Available [facility] ([facility]) [address] [facility], [place], [address], 02/03/2022 07:11:57 01/31/20 22 01/31/2022 [id number] 9 10 DRUG- BUND cannabinoid See Final Result s Not Available [facility] ([facility]) [address] [place], [address], 02/03/2022 07:11:57 01/31/20 22 01/31/2022 [id number] 9 10 DRUG- BUND cocaine (metab.) Negati ve NG/mL cutoff =300 Not Available [facility] ([facility]) [address] [facility], [place], [address], 02/03/2022 07:11:57 01/31/20 22 01/31/2022 [id number] 9 10 DRUG- BUND methaqualone Negati ve NG/mL cutoff =300 Not Available [facility] ([facility]) [address] [place], [address], 02/03/2022 07:11:57 01/31/20 22 01/31/2022 [id number] 9 10 DRUG- BUND opiates Negati ve NG/mL cutoff =2000 Opiat e test inclu jen Codei ne and Morph ine only. Not Available [facility] ([facility]) [address] [place], [address], 02/03/2022 07:11:57 01/31/20 22 01/31/2022 [id number] 9 10 DRUG- BUND phencyclidin e Negati ve NG/mL cutoff =25 Not Available [facility] ([facility]) [address] [place], [address], 02/03/2022 07:11:57 01/31/20 22 01/31/2022 [id number] 9 10 DRUG- BUND methadone screen, urine Negati ve NG/mL cutoff =300 Not Available [facility] ([facility]) [address] [place], [address], 02/03/2022 07:11:57 01/31/20 22 01/31/2022 [id number] 9 10 DRUG- BUND propoxyphene , urine Negati ve NG/mL cutoff =300 Not Available [facility] ([facility]) [address] [place], [address], 02/03/2022 07:11:57 01/31/20 22 02/02/2022 CANNA BINOI D CONFI RMATI ON, UR cannabinoid Positi ve cutoff =50 abnormal Not Available [facility] ([facility]) [address] [place], [address], 02/03/2022 07:11:58 01/31/2002/02/2022 CANNA BINOI D CONFI RMATI ON, UR carboxy THC conf, MS, ur >750 NG/mL cutoff =15 Not Available [facility] ([facility]) [address] [place], [address], 02/03/2022 07:11:58 01/31/20 22 02/01/2022 URINE CULTU RE, ROUTI NE urine culture, routine Final report Not Available [facility] ([facility]) [address] [place], [address], 02/03/2022 07:11:58 01/31/20 22 02/01/2022 URINE CULTU RE, ROUTI NE result 1 Commen t Mixed uroge nital meseret 25,00 0-50, 000 colon y formi ng units per mL Not Available [facility] ([facility]) [address] [facility], [place], [address], 02/03/2022 07:11:58 01/31/20 22 01/31/2022 HGB FRACT IONAT ION CASCA DE HGB F 0.6 % 0.0-2. 0 Not Available [facility] ([facility]) [address] [place], [address], 02/03/2022 16:12:15 01/31/20 22 01/31/2022 HGB FRACT IONAT ION CASCA DE HGB A 96.6 % 96.4-9 8.8 Not Available [facility] ([facility]) [address] [place], [address], 02/03/2022 16:12:15 01/31/20 22 01/31/2022 HGB FRACT IONAT ION CASCA DE HGB A2 2.8 % 1.8-3. 2 Not Available [facility] ([facility]) [address] [place], [address], 02/03/2022 16:12:15 01/31/20 22 01/31/2022 HGB FRACT IONAT ION CASCA DE HGB S 0.0 % 0.0 Not Available [facility] ([facility]) [address] [place], [address], 02/03/2022 16:12:15 01/31/20 22 01/31/2022 HGB FRACT IONAT ION CASCA DE interpretati on: Commen t Lori l hemog lobin prese nt; no hemog lobin varia nt or beta thala ssemi a ident ified . Note: Alpha thala ssemi a may not be detec isabel by the Hgb Fract ionat ion [place] de panel . If alpha thala ssemi a is suspe cted, [facility] offer s Alpha -Thal assem ia DNA Roosevelt sis (#[id number]). Not Available [facility] ([facility]) [address] [facility], [place], [address], 02/03/2022 16:12:15 01/31/20 22 01/31/2022 HCV ANTIB MARY hep C virus Ab <0.1 Negat gerson: < 0.8 Indet ermin ate: 0.8 - 0.9 Posit gerson: > 0.9 HCV antib mary alone does not diffe renti ate betwe en previ ous resol danna infec tion and activ e infec tion. The CDC and curre nt clini jennie guide lines recom mend that a posit gerson HCV antib mary resul t be follo wed up with an HCV RNA test to suppo rt the diagn osis of acute HCV infec tion. [facility] offer s Hepat itis C Virus (HCV) RNA, Diagn osis, COURTNEY ([id number]) and Hepat itis C Virus (HCV) Antib mary with refle x to Quant itati ve Real- time PCR (1440 50). Not Available [facility] ([facility]) [address] [facility], [place], [address], 02/03/2022 16:12:16 01/31/20 22 01/31/2022 PRENA LISSET PROFI LE I HBsAg screen Negati ve negati ve Not Available [facility] ([facility]) [address] [facility], [place], [address], 02/03/2022 16:12:16 01/31/20 22 01/31/2022 PRENA LISSET PROFI LE I RPR Non Reacti ve nonrea ctive Not Available [facility] ([facility]) [address] [facility], [place], [address], 02/03/2022 16:12:16 01/31/20 22 01/31/2022 PRENA LISSET PROFI LE I rubella antibodies, IgG 2.35 index immune >0.99 Non-i mmune <0.90 Equiv ocal 0.90 - 0.99 Immun e >0.99 Not Available [facility] ([facility]) [address] [facility], [place], [address], 02/03/2022 16:12:16 01/31/20 22 01/31/2022 PRENA LISSET PROFI LE I ABO grouping B Not Available [facility] ([facility]) [address] [facility], [place], [address], 02/03/2022 16:12:16 01/31/2001/31/2022 PRENA LISSET PROFI LE I Rh factor Positi ve Pleas e note: Prior recor ds for this patie nt's ABO / Rh type are not avail able for addit ional verif icati on. Not Available [facility] ([facility]) [address] [facility], [place], [address], 02/03/2022 16:12:16 01/31/20 22 01/31/2022 PRENA LISSET PROFI LE I antibody screen Negati ve negati ve Not Available [facility] ([facility]) [address] [facility], [place], [address], 02/03/2022 16:12:16 01/31/20 22 01/31/2022 PRENA LISSET PROFI LE I WBC 15.2 x10e3 /uL 3.4-10 .8 above high normal Not Available [facility] ([facility]) [address] [place], [address], 02/03/2022 16:12:16 01/31/20 22 01/31/2022 PRENA LISSET PROFI LE I RBC 3.85 x10e6 /uL 3.77-5 .28 Not Available [facility] ([facility]) [address] [place], [address], 02/03/2022 16:12:16 01/31/20 22 01/31/2022 PRENA LISSET PROFI LE I hemoglobin 11.9 g/dL 11.1-1 5.9 Not Available [facility] ([facility]) [address] [place], [address], 02/03/2022 16:12:16 01/31/2001/31/2022 PRENA LISSET PROFI LE I hematocrit 34.9 % 34.0-4 6.6 Not Available [facility] ([facility]) [address] [place], [address], 02/03/2022 16:12:16 01/31/2001/31/2022 PRENA LISSET PROFI LE I MCV 91 fL 79-97 Not Available [facility] ([facility]) [address] [place], [address], 02/03/2022 16:12:16 01/31/2001/31/2022 PRENA LISSET PROFI LE I MCH 30.9 pg 26.6-3 3.0 Not Available [facility] ([facility]) [address] [place], [address], 02/03/2022 16:12:16 01/31/2001/31/2022 PRENA LISSET PROFI LE I MCHC 34.1 g/dL 31.5-3 5.7 Not Available [facility] ([facility]) [address] [place], [address], 02/03/2022 16:12:16 01/31/2001/31/2022 PRENA LISSET PROFI LE I RDW 12.8 % 11.7-1 5.4 Not Available [facility] ([facility]) [address] [place], [address], 02/03/2022 16:12:16 01/31/20 22 01/31/2022 PRENA LISSET PROFI LE I platelets 357 x10e3 /uL 150-45 0 Not Available [facility] ([facility]) [address] [facility], [place], [address], 02/03/2022 16:12:16 01/31/20 22 01/31/2022 PRENA LISSET PROFI LE I neutrophils 80 % notest ab. Not Available [facility] ([facility]) [address] [facility], [place], [address], 02/03/2022 16:12:16 01/31/20 22 01/31/2022 PRENA LISSET PROFI LE I lymphs 14 % notest ab. Not Available [facility] ([facility]) [address] [facility], [place], [address], 02/03/2022 16:12:16 01/31/20 22 01/31/2022 PRENA LISSET PROFI LE I monocytes 4 % notest ab. Not Available [facility] ([facility]) [address] [facility], [place], [address], 02/03/2022 16:12:16 01/31/20 22 01/31/2022 PRENA LISEST PROFI LE I eos 1 % notest ab. Not Available [facility] ([facility]) [address] [facility], [place], [address], 02/03/2022 16:12:16 01/31/20 22 01/31/2022 PRENA LISSET PROFI LE I basos 0 % notest ab. Not Available [facility] ([facility]) [address] [facility], [place], [address], 02/03/2022 16:12:16 01/31/20 22 01/31/2022 PRENA LISSET PROFI LE I neutrophils (absolute) 12.1 x10e3 /uL 1.4-7. 0 above high normal Not Available [facility] ([facility]) [address] [facility] [place], [address], 02/03/2022 16:12:16 01/31/20 22 01/31/2022 PRENA LISSET PROFI LE I lymphs (absolute) 2.1 x10e3 /uL 0.7-3. 1 Not Available [facility] ([facility]) [address] [facility] [place], [address], 02/03/2022 16:12:16 01/31/20 22 01/31/2022 PRENA LISSET PROFI LE I monocytes(ab solute) 0.7 x10e3 /uL 0.1-0. 9 Not Available [facility] ([facility]) [address] [facility], [place], [address], 02/03/2022 16:12:16 01/31/20 22 01/31/2022 PRENA LISSET PROFI LE I eos (absolute) 0.1 x10e3 /uL 0.0-0. 4 Not Available [facility] ([facility]) [address] [facility] [place], [address], 02/03/2022 16:12:16 01/31/20 22 01/31/2022 PRENA LISSET PROFI LE I baso (absolute) 0.1 x10e3 /uL 0.0-0. 2 Not Available [facility] ([facility]) [address] [place], [address], 02/03/2022 16:12:16 01/31/20 22 01/31/2022 PRENA LISSET PROFI LE I immature granulocytes 1 % notest ab. Not Available [facility] ([facility]) [address] [facility] [place], [address], 02/03/2022 16:12:16 01/31/20 22 01/31/2022 PRENA LISSET PROFI LE I immature grans (abs) 0.1 x10e3 /uL 0.0-0. 1 Not Available [facility] ([facility]) [address] [facility], [place], [address], 02/03/2022 16:12:16 01/31/20 22 02/03/2022 MATER NIT21 PLUS CORE gestation Single ton Not Available [facility] ([facility]) [address] [facility], [place], [address], 02/03/2022 16:12:17 01/31/20 22 02/03/2022 MATER NIT21 PLUS CORE fraction 16% Not Available [facility] ([facility]) [address] [facility] [place], [address], 02/03/2022 16:12:17 01/31/20 22 02/03/2022 MATER NIT21 PLUS CORE gestational age > or = 9W: Yes Not Available [facility] ([facility]) [address] [facility], [place], [address], 02/03/2022 16:12:17 01/31/20 22 02/03/2022 MATER NIT21 PLUS CORE test result Positi ve abnormal Triso my 21 Not Available [facility] ([facility]) [address] [facility] [place], [address], 02/03/2022 16:12:17 01/31/20 22 02/03/2022 MATER NIT21 PLUS CORE component lab tech comments Vincent blackman This speci men showe d an incre ased repre senta tion of chrom osome 21, sugge stive of triso my 21 (Down syndr ome). Ghassan ic couns eling , confi rmato ry diagn ostic testi ng, and clini jennie corre latio n are recom armaan d. Not Available [facility] ([facility]) [address] [facility], [place], [address], 02/03/2022 16:12:17 01/31/20 22 02/03/2022 MATER NIT21 PLUS CORE approved by Vincent parson MD, Dire tor, Seque nom Labor atori es Not Available [facility] ([facility]) [address] [place], [address], 02/03/2022 16:12:17 01/31/20 22 02/03/2022 MATER NIT21 PLUS CORE trisomy 21 (down syndrome) See below: abnormal Posit gerson T21 PPV*: 46.4% Not Available [facility] ([facility]) [address] [place], [address], 02/03/2022 16:12:17 01/31/20 22 02/03/2022 MATER NIT21 PLUS CORE trisomy 18 (alvarado syndrome) Negati ve Not Available [facility] ([facility]) [address] [place], [address], 02/03/2022 16:12:17 01/31/20 22 02/03/2022 MATER NIT21 PLUS CORE trisomy 13 (patau syndrome) Negati ve Not Available [facility] ([facility]) [address] [place], [address], 02/03/2022 16:12:17 01/31/20 22 02/03/2022 MATER NIT21 PLUS CORE sex Commen t Consi stent with Femal e Not Available [facility] ([facility]) [address] [place], [address], 02/03/2022 16:12:17 01/31/20 22 02/03/2022 MATER NIT21 PLUS CORE negative predictive value Note The Negat gerson Predi ctive Value (NPV) for triso my 21, 18, and 13 is great er than 99%. The NPV for SCA and ESS canno t be calcu lated as SCA and ESS are only repor isabel when an abnor malit y is detec isabel. Not Available [facility] ([facility]) [address] [place], [address], 02/03/2022 16:12:17 01/31/2002/03/2022 MATER NIT21 PLUS CORE positive predictive value Note * Posit gerson Predi ctive Value (PPV) estim ates the proba bilit y that a pregn jeancarlos with a posit gerson test resul t is in fact an affec isabel pregn jeancarlos. The PPV for this patie nt was calcu lated only using mater nal age and gesta josh l age[1 ], test perfo rmanc e[2] and the stand george PPV formu la. For a more accur ate and indiv idual ized PPV calcu latio n, inclu de addit ional clini jennie infor matio n from the patie nt's clini jennie histo ry (whic h may inclu de serum scree n resul ts, perso nal/f amily histo ry, ultra sound findi ngs, etc.) , and refer to the table below . A Prior i Risk (1:10 ); PPV (99.1 %) TRISO MY 21 A Prior i Risk (1:20 ); PPV (98.1 %) TRISO MY 21 A Prior i Risk (1:30 ); PPV (97.2 %) TRISO MY 21 A Prior i Risk (1:40 ); PPV (96.2 %) TRISO MY 21 A Prior i Risk (1:50 ); PPV (95.3 %) TRISO MY 21 A Prior i Risk (1:10 0); PPV (90.9 %) TRISO MY 21 A Prior i Risk (1:20 0); PPV (83.3 %) TRISO MY 21 A Prior i Risk (1:30 0); PPV (76.8 %) TRISO MY 21 A Prior i Risk (1:40 0); PPV (71.3 %) TRISO MY 21 A Prior i Risk (1:50 0); PPV (66.5 %) TRISO MY 21 A Prior i Risk (1:10 00); PPV (49.8 %) TRISO MY 21 A Prior i Risk (1:15 00); PPV (39.8 %) TRISO MY 21 A Prior i Risk (1:20 00); PPV (33.1 %) TRISO MY 21 A Prior i Risk (1:25 00); PPV (28.4 %) TRISO MY 21 A Prior i Risk (1:30 00); PPV (24.8 %) TRISO MY 21 A Prior i Risk (1:50 00); PPV (16.5 %) TRISO MY 21 Not Available [facility] ([facility]) [address] [facility], [place], [address], 02/03/2022 16:12:17 01/31/20 22 02/03/2022 MATER NIT21 PLUS CORE about the test Commen t The Mater niT(R ) 21 PLUS labor atory -deve loped test (LDT) roosevelt zes circu latin g cell- free DNA from a mater nal blood sampl e. This test is used for scree jerry purpo ses and not diagn ostic . Clini jennie corre latio n is recom armaan d. Valid ation data on twin pregn ancie s is limit ed and the abili ty of this test to detec t aneup loidy in highe r multi ple gesta tions has not yet been valid ated. Not Available [facility] ([facility]) [address] [facility], [place], [address], 02/03/2022 16:12:17 01/31/20 22 02/03/2022 MATER NIT21 PLUS CORE test method Commen t Circu latin g cell- free DNA was purif ied from the plasm a compo nent of mater nal blood . The extra cted DNA was then conve rted into a [employer] DNA damari ry for aneup loidy roosevelt sis of chrom osome s 21, 18, and 13 via next gener ation seque ncing .[3] Optio nal findi ngs based on the test order inclu de sex chrom osome aneup loidy (SCA) [2], and enhan chino seque ncing serie s (ESS) [4], which will only be repor isabel on as an addit ional findi ng when an abnor malit y is detec isabel. SCA testi ng inclu jen infor matio n on X and Y repre senta tion, while ESS testi ng inclu jen delet ions in selec isabel regio ns (22q, 15q, 11q, 8q, 5p, 4p, 1p) and triso my of chrom osome s 16 and 22. Not Available [facility] ([facility]) [address] [facility], [place], [address], 02/03/2022 16:12:17 01/31/20 22 02/03/2022 MATER NIT21 PLUS CORE performance Commen t The perfo rmanc e augustus cteri stics of the Mater niT(R ) 21 PLUS labor atory -deve loped test (LDT) have been deter mined in a clini jennie valid ation study with pregn ant women at incre ased risk for chrom osoma l aneup loidy .[2-5 ] Not Available [facility] ([facility]) [address] [facility], [place], [address], 02/03/2022 16:12:17 01/31/20 22 02/03/2022 MATER NIT21 PLUS CORE performance characterist ics Note ----- ----- ----- ----- ----- ----- ----- ----- ----- ----- ----- ---- ! Sex ! Accur acy: 99.4% ! !---- ----- ----- ----- ----- ----- ----- ----- ----- ----- ----- ---! ! Regio n (asso silvio d syndr ome) ! Est. Sens# ! Est. Spec ! !---- ----- ----- ----- ----- ----- ----- ----- ----- ----- ----- ---! ! Triso my 21 (Down Syndr ome) ! 99.1% ! 99.9% ! !---- ----- ----- ----- ----- ----- ----- ----- ----- ----- ----- ---! ! Nadine my 18 (Benjie rds Syndr ome) ! >99.9 % ! 99.6% ! !---- ----- ----- ----- ----- ----- ----- ----- ----- ----- ----- ---! ! Nadine my 13 (Pata u Syndr ome) ! 91.7% ! 99.7% ! !---- ----- ----- ----- ----- ----- ----- ----- ----- ----- ----- ---! ! Sex Chrom osome Aneup esther es## ! 96.2% ! 99.7% ! !---- ----- ----- ----- ----- ----- ----- ----- ----- ----- ----- ---! * As repor isabel in ISCA datab ase nstd3 7 [http s://w ww.nc bi.nl .[email or web address] .gov/ dbvar /stud ies/n std37 / ] # Estim ated Sensi tivit y. Sensi tivit y estim ated acros s the obser danna size distr ibuti on of each syndr ome [per ISCA datab ase nstd3 7] and acros s the range of fract ions obser danna in routi ne clini jennie NIPT. Actua l sensi tivit y can also be influ enced by other facto rs such as the size of the event , total seque nce count s, ampli ficat ion bias, or seque nce bias. ## Singl eton gesta tion only. Not Available [facility] ([facility]) [address] [facility], [place], [address], 02/03/2022 16:12:17 01/31/20 22 02/03/2022 MATER NIT21 PLUS CORE limitations of the test Commen t While the resul ts of these tests are highl y relia ble, disco rdant resul ts, inclu ding inacc urate sex predi ction , may occur due to place ntal, mater nal, or mosai cism or neopl asm; vanis darina twin; prior mater nal organ trans plant ; or other cause s. These tests are scree jerry tests and not diagn ostic ; they do not repla ce the accur acy and preci alfie of prena lisset diagn osis with CVS or amnio cente sis. A patie nt with a posit gerson test resul t shoul d be refer red for ghassan ic couns eling and offer ed invas gerson prena lisset diagn osis for confi rmati on of test resul ts.[6 ] The resul ts of this testi ng, inclu ding the benef its and limit ation s, shoul d be discu ssed with a quali fied healt hcare provi yeny. Pregn jeancarlos manag ement decis ions, inclu ding termi natio n of the pregn jeancarlos, shoul d not be based on the resul ts of these tests alone . The healt hcare provi yeny is respo nsibl e for the use of this infor matio n in the manag ement of their patie nt. Sex chrom osoma l aneup loidi es are not repor table for known multi ple gesta tions . A negat gerson resul t does not ensur e an unaff ected pregn jeancarlos nor does it exclu de the possi bilit y of other chrom osoma l abnor malit ies or defec ts which are not a part of these tests . An uninf ormat gerson resul t may be repor isabel, the cause s of which may inclu de, but are not limit ed to, insuf ficie nt seque ncing cover age, noise or artif acts in the regio n, ampli ficat ion or seque ncing bias, or insuf ficie nt fract ion. These tests are not inten ded to ident gina pregn ancie s at risk for neura l tube defec ts or ventr al wall defec ts. Testi ng for whole chrom osome abnor malit ies (incl uding sex chrom osome s) and for subch romos omal abnor malit ies could lead to the poten tial disco very of both and mater nal genom ic abnor malit ies that could have major , minor , or no, clini jennie signi fican ce. Evalu ating the signi fican ce of a posit gerson or a non-r eport able resul t may invol ve both invas gerson testi ng and addit ional studi es on the mothe r. Such inves tigat ions may lead to a diagn osis of mater nal chrom osoma l or subch romos omal abnor malit ies, which on occas ion may be assoc iated with benig n or malig nant mater nal neopl asms. These tests may not accur ately ident gina tripl oidy, reji chino rearr angem ents, or the preci se locat ion of subch romos omal dupli catio ns or delet ions; these may be detec isabel by prena lisset diagn osis with CVS or amnio cente sis. The abili ty to repor t resul ts may be impac isabel by mater nal BMI, mater nal weigh t, mater nal syste madisyn lupus eryth emato madhavi (SLE) and/o r by certa in pharm aceut ical agent s such as low molec ular weigh t hepar in (for examp le: Loven ox(R) , Xapar in(R) , Clexa ne(R) and Fragm in(R) ). Not Available [facility]) [address] [facility], [place], [address], 02/03/2022 16:12:17 01/31/20 22 02/03/2022 MATER NIT21 PLUS CORE note [employer] is a subsi diary of Labor atory Corpo ratio n of [employer], using the brand [employer]. This test was devel oped and its perfo rmanc e augustus cteri stics deter mined by [employer]. It has not been clear ed or appro danna by the Food and Drug Admin istra tion. This labor atory is certi fied under the Clini jennie Labor atory Impro vemen t Amend ments (CLIA ) as quali fied to perfo rm high compl exity clini jennie labor atory testi ng and accre dited by the [employer] Patho logis ts (CAP) . Not Available [facility] ([facility]) [address] [facility], [place], [address], 02/03/2022 16:12:17 01/31/20 22 02/03/2022 MATER NIT21 PLUS CORE references Commen t 1. Tono davila RJ, et al. Ultra sound Obste t. 1999; 13(3) :167- 170. 2. Tereza weston AR, et al. Prena t Diag. 2013; 33(6) :591- 597. 3. Gilbert CHRISTIANSON, et al. Ghassan Med. 2012; 14(3) :296- 305. 4. Fuad Gonzalez, et al. Clin Chem. 2015 Aug;6 1(4): 608-6 16. 5. Gilbert CHRISTIANSON, et al. Ghassan Med. 2011; 13(11 ):913 -920. 6. ACOG/ SMFM Pract ice Bulle tin No. 226, Feb 2020. Not Available [facility] ([facility]) [address], [place], [address], 02/03/2022 16:12:17 01/31/20 22 02/03/2022 MATER NIT21 PLUS CORE pdf . Not Available [facility] ([facility]) [address], [place], [address], 02/03/2022 16:12:17 01/31/20 22 01/30/2022 CYSTI C FIBRO SIS PROFI LE comment: Commen t The assay provi jen infor matio n inten ded to be used for ivory er scree jerry in adult s of repro ducti ve age, as an aid in newbo rn scree jerry, and as a confi rmato ry test for anoth er medic ally estab lishe d diagn osis in [facility] rns and child duyen. The test is not indic ated for use in diagn ostic testi ng, pre-i mplan tatio n scree jerry, or for any stand -jd e diagn ostic purpo ses witho ut confi rmati on by anoth er medic ally estab lishe d diagn ostic produ ct or proce dure. Not Available [facility] ([facility]) [address], [place], [address], 02/03/2022 16:12:18 01/31/20 22 02/03/2022 CYSTI C FIBRO SIS PROFI LE CF, screen Commen t: RESUL TS: Negat gerson for 32 mutat ions roosevelt zed INTER PRETA TION: This indiv idual is negat gerson for the mutat ions roosevelt zed. This negat gerson resul t may need furth er inter preta tion depen ding on the clini jennie indic ation . This resul t reduc es but does not elimi olena the risk to be a CF ivory er. COMME NTS: The detec tion rate varie s with [place]ni city and is liste d below . The prese nce of an undet ected mutat ion in the CF gene canno t be ruled out. In the absen ce of famil y histo ry, the remai jerry risk that a perso n with a negat gerson resul t could have at least one CF mutat ion is liste d in the table . If there is a famil y histo ry of CF, these risk figur es do not apply . As detai led infor amandeep reeves regar ding this indiv idual 's famil y histo ry would permi t a more accur ate asses sment of this indiv idual 's risk to be a ivory er of cysti c fibro sis, pleas e conta ct [facility] Servi denzel at [phone] for a iwona ed repor t. Mutat ion Detec tion Detec tion rates are based on mutat ion Rates among Ethni c frequ encie s in patie nts affec isabel with Group s cysti c fibro sis. Among indiv idual s with an atypi jennie or mild prese ntati on (e.g. conge nital absen ce of the vas defer ens, pancr eatit is) detec tion rates may vary from those provi ded here: Ivory er risk reduc tion when no famil y histo ry Detec tion Ethni city Rate Leopoldo dumont 06/15 to 97% Jewis h Cauca megha 06/14 to 90% (non- Hispa radha) Afric an-Am dallin n to 69% Hispa radha to 73% to 55% This inter preta tion is based on the clini jennie and famil y relat ionsh ip infor matio n provi ded and the curre nt under stand ing of the molec ular ghassan ics of this condi tion. MUTAT IONS ROOSEVELT ZED: G85E V520F W1282 X 2183A A to G R117H G542X N1303 K 2184d Lizbet R334W S549N 394de lTT 2789+ 5G to A R347H S549R 621+1 G to T 3120+ 1G to A R347P G551D 711+1 G to T 3659d elC A455E R553X 1078d elT 3849+ 10kbC to T Delta I507 R560T 1717- 1G to A 3876d Lizbet Delta F508 R1162 X 1898+ 1G to A 3905i nsT METHO DS/LI MITAT IONS: DNA is isola isabel from the sampl e and teste d for the 32 CF mutat ions on the Unive rsal Array Platf orm (Ara nex). Regio ns of the CFTR gene are ampli fied enzym atica lly and subje cted to a solut ion-p hase multi plex allel e-spe cific prime r exten alfie with subse quent hybri dizat ion to a bead array and fluor escen ce detec tion. Polym orphi sms F508C , I506V and I507V are inclu ded in this panel to rule out false posit gerson delta F508 homoz ygote s. Refle x testi ng of 5T is inclu ded in the panel for R117H inter preta tion. False posit gerson or negat gerson resul ts may occur for reaso ns that inclu de ghassan ic varia nts, blood trans fusio ns, bone marro w trans plant ation , annette eous repre senta tion of famil y relat ionsh ips or conta minat ion of a sampl e with mater nal cells . REFER ENCES : 1. Updat es on Ivory er Scree jerry for Cysti c Fibro sis. (2011 ) Am J Ob Gynec ol 117(4 ):102 8-103 1 2. Narindero n, et al. (2004 ) Ghassan Med 6:387 -91 3. Janet christie, et al. (2002 ) Ghassan Med 4:379 -391 4. Preco ncept ion and prena lisset ivory er scree jerry for cysti c fibro sis: (2000 )ACOG .ACMG publi catio n Resul ts Relea sed By: Anat Becerra, Ph.D. , [facility] Repor t Relea sed By: Anat Becerra, Ph.D. , [facility] Not Available [facility] ([facility]) [address], [place], [address], 02/03/2022 16:12:18 01/31/20 22 02/03/2022 CYSTI C FIBRO SIS PROFI LE pdf . Not Available [facility] ([facility]) [address], [place], [address], 02/03/2022 16:12:18 01/31/20 22 01/30/2022 AFP, SERUM , OPEN SPINA BIFID A comment: Vincent hinojosa , Ph.D. , [facility] Refer ences : Avail able Upon Reque st. Multi ples Of Media n Cutof fs For AFP [place] tions Singl eton 2.5 Black 2.8 IDD 2.0 Twins 4.5 Abbre viati on Defin ition s IDD - Insul in Dep Diabe uyen OSBR - Open Spina Bifid a Risk For furth er inqui david conta ct [facility] Servi denzel at [phone]. This test was cassie goldman and its perfo lorne e augustus andrewri stics deter mined by [facility]. It has not been clear ed or appro danna by the Food and Drug Admin istra tion. Not Available [facility] ([facility]) [address] [place], [address], 02/03/2022 16:12:18 01/31/20 22 02/01/2022 AFP, SERUM , OPEN SPINA BIFID A results Report Not Available [facility] ([facility]) [address] [place], [address], 02/03/2022 16:12:18 01/31/20 22 02/01/2022 AFP, SERUM , OPEN SPINA BIFID A test results: *Scree n Negati ve* Not Available [facility] ([facility]) [address] [place], [address], 02/03/2022 16:12:18 01/31/20 22 02/01/2022 AFP, SERUM , OPEN SPINA BIFID A gest. age on collection date 20.4 weeks Not Available [facility] ([facility]) [address] [place], [address], 02/03/2022 16:12:18 01/31/20 22 02/01/2022 AFP, SERUM , OPEN SPINA BIFID A gestat. age based on LMP 09/09 Recal culat ions are not recom armaan d when gesta josh l datin g by LMP and ultra sound are withi n 10 days. Not Available [facility] ([facility]) [address] [place], [address], 02/03/2022 16:12:18 01/31/20 22 02/01/2022 AFP, SERUM , OPEN SPINA BIFID [age] Not Available [facility] ([facility]) [address] [place], [address], 02/03/2022 16:12:18 01/31/20 22 02/01/2022 AFP, SERUM , OPEN SPINA BIFID A race Black Not Available [facility] ([facility]) [address] [place], [address], 02/03/2022 16:12:18 01/31/20 22 02/01/2022 AFP, SERUM , OPEN SPINA BIFID A weight 150 lbs Not Available [facility] ([facility]) [address] [place], [address], 02/03/2022 16:12:18 01/31/20 22 02/01/2022 AFP, SERUM , OPEN SPINA BIFID A insulin dep diabetes No Not Available [facility] ([facility]) [address] [place], [address], 02/03/2022 16:12:18 01/31/20 22 02/01/2022 AFP, SERUM , OPEN SPINA BIFID A multiple gestation No Not Available [facility] ([facility]) [address] [place], [address], 02/03/2022 16:12:18 01/31/20 22 02/01/2022 AFP, SERUM , OPEN SPINA BIFID A AFP value 53.4 NG/mL Not Available [facility] ([facility]) [address] [place], [address], 02/03/2022 16:12:18 01/31/20 22 02/01/2022 AFP, SERUM , OPEN SPINA BIFID A AFP MOM 0.78 Not Available [facility] ([facility]) [address] [place], [address], 02/03/2022 16:12:18 01/31/20 22 02/01/2022 AFP, SERUM , OPEN SPINA BIFID A OSBR risk 1 [place] [address] Not Available [facility] ([facility]) [address], [place], [address], 02/03/2022 16:12:18 01/31/20 22 02/01/2022 AFP, SERUM , OPEN SPINA BIFID A interpretati on Commen t Inter preta tion: Scree n Negat gerson This resul t is scree n negat gerson for OSB. The AFP MoM calcu lated is based on the gesta josh l age provi ded. MS-AF P can ident gina up to 80% of open neura l tube defec ts. Close d neura l tube defec ts and some open defec ts may not be detec isabel by this test. This test does not scree n for Down Syndr ome or Triso my 18. If scree jerry for Down Syndr ome or Triso my 18 is alida ed, conta ct [facility] Custo renu Servi denzel to discu ss avail able optio ns. The Nesha can Colle ge of Obste trici ans and Gynec ologi sts recom mends amnio cente sis be offer ed to women age 35 and older . Not Available [facility] ([facility]) [address], [place], [address], 02/03/2022 16:12:18 01/31/20 22 02/01/2022 AFP, SERUM , OPEN SPINA BIFID A pdf . Not Available [facility] ([facility]) [address], [place], [address], 02/03/2022 16:12:18 01/31/20 22 01/31/2022 HIV AB/P2 4 AG WITH REFLE X HIV Ab/P24 Ag screen Non Reacti ve nonrea ctive HIV Negat gerson HIV-1 /HIV- 2 antib odies and HIV-1 p24 antig en were NOT detec isabel. There is no labor atory evide nce of HIV infec tion. Not Available [facility] ([facility]) [address], [place], [address], 02/03/2022 16:12:19 01/31/2001/31/2022 VARIC BRENDA- ZOSTE R V AB, IGG varicella zoster IgG <135 index immune >165 below low normal Negat gerson <135 Equiv ocal 135 - 165 Posit gerson >165 A posit gerson resul t gener ally indic ates expos ure to the patho gen or admin istra tion of speci fic immun oglob ulins , but it is not indic ation of activ e infec tion or stage of disea se. Not Available [facility] ([facility]) [address], [place], [address], 02/03/2022 16:12:19 01/31/2002/01/2022 IGP,C TNGTV ,APT HPV,R FX16/ 18,45 HPV aptima Positi ve negati ve abnormal This nucle ic acid ampli ficat ion test detec ts fourt een high- risk HPV types (16,1 8,31, 33,35 ,39,4 5,51, 52,56 ,58,5 9,66, 68) witho ut diffe renti ation . Not Available [facility] ([facility]) [address], [place], [address], 02/04/2022 07:12:33 01/31/20 22 02/01/2022 IGP,C TNGTV ,APT HPV,R FX16/ 18,45 chlamydia, nuc. acid amp Positi ve negati ve abnormal Not Available [facility] ([facility]) [address] [place], [address], 02/04/2022 07:12:33 01/31/2002/01/2022 IGP,C TNGTV ,APT HPV,R FX16/ 18,45 gonococcus, nuc. acid amp Negati ve negati ve Not Available [facility] ([facility]) [address] [place], [address], 02/04/2022 07:12:33 01/31/20 22 02/01/2022 IGP,C TNGTV ,APT HPV,R FX16/ 18,45 trich vag by COURTNEY Negati ve negati ve Not Available [facility] ([facility]) [address] [place], [address], 02/04/2022 07:12:33 01/31/20 22 02/02/2022 IGP,C TNGTV ,APT HPV,R FX16/ 18,45 diagnosis: Vincent t NEGAT GERSON FOR INTRA EPITH ELIAL LESIO N OR LEONARDO BROWN . FUNGA L ORGAN ISMS MORPH OLOGI JERI CONSI STENT WITH KOFI DA SPECI ES ARE PRESE NT. CELLU LAR WILSON ES ASSOC IATED WITH INFLA MMATI ON ARE PRESE NT. Not Available [facility] ([facility]) [address], [place], [address], 02/04/2022 07:12:33 01/31/2002/02/2022 IGP,C TNGTV ,APT HPV,R FX16/ 18,45 specimen adequacy: Vincent t Satis facto ry for evalu ation . No endoc ervic al compo nent is ident ified . An endoc ervic al compo nent is not commo nly seen in the pregn ant patie nt. Not Available [facility] ([facility]) [address], [place], [address], 02/04/2022 07:12:33 01/31/20 22 02/02/2022 IGP,C TNGTV ,APT HPV,R FX16/ 18,45 clinician provided ICD10: Vincent blackman Z34.9 2 Not Available [facility] ([facility]) [address] [place], [address], 02/04/2022 07:12:33 01/31/20 22 02/02/2022 IGP,C TNGTV ,APT HPV,R FX16/ 18,45 performed by: Vincent Wei r, Cytot juancarlos blackman (ASCP ) Not Available [facility] ([facility]) [address] [place], [address], 02/04/2022 07:12:33 01/31/20 22 02/02/2022 IGP,C TNGTV ,APT HPV,R FX16/ 18,45 . . Not Available [facility] ([facility]) [address], [place], [address], 02/04/2022 07:12:33 01/31/20 22 02/02/2022 IGP,C TNGTV ,APT HPV,R FX16/ 18,45 note: Commen t The Pap smear is a scree jerry test desig oliverio to aid in the detec tion of omari ligna nt and malig nant condi tions of the uteri ne cervi x. It is not a diagn ostic proce dure and shoul d not be used as the sole means of detec ting cervi jennie cance r. Both false -posi tive and false -nega tive repor ts do occur . Not Available [facility] ([facility]) [address], [place], [address], 02/04/2022 07:12:33 01/31/2002/02/2022 IGP,C TNGTV ,APT HPV,R FX16/ 18,45 test methodology: Commen t This liqui d based ThinP rep(R ) pap test was scree oliverio with the use of an image guide aubree de los santos. Not Available [facility] ([facility]) [address] [facility], [place], [address], 02/04/2022 07:12:33 01/31/20 22 02/03/2022 IGP,C TNGTV ,APT HPV,R FX16/ 18,45 HPV genotype 16 Negati ve negati ve Not Available [facility] ([facility]) [address] [place], [address], 02/04/2022 07:12:33 01/31/20 22 02/03/2022 IGP,C TNGTV ,APT HPV,R FX16/ 18,45 HPV genotype 18,45 Negati ve negati ve Not Available [facility] ([facility]) [address], [place], [address], 02/04/2022 07:12:33 01/31/20 22 01/30/2022 edinb urgh postn atal depre ssion scale * Score 7 Not Available In-Office Order Internal Use Only DO Not Attach Compendium DO Not Attach Compendium, Do Not Delete/merge, 01/30/2022 17:13:19 01/31/20 22 01/30/2022 urina lysis , dipst ick Leukocytes Small Not Available In-Offi ce Order Internal Use Only DO Not Attach Compendium DO Not Attach Compendium, Do Not Delete/merge, 01/30/2022 11:33:19 01/31/20 22 01/30/2022 urina lysis , dipst ick Nitrite negati ve Not Available In-Office Order Internal Use Only DO Not Attach Compendium DO Not Attach Compendium, Do Not Delete/merge, 01/30/2022 11:33:19 01/31/20 22 01/30/2022 urina lysis , dipst ick Urobilinogen .2 Not Available In-Of fice Order Internal Use Only DO Not Attach Compendium DO Not Attach Compendium, Do Not Delete/merge, 01/30/2022 11:33:19 01/31/20 22 01/30/2022 urina lysis , dipst ick Protein Negati ve Not Available In-Office Order Internal Use Only DO Not Attach Compendium DO Not Attach Compendium, Do Not Delete/merge, 01/30/2022 11:33:19 01/31/20 22 01/30/2022 urina lysis , dipst ick pH 7.0 Not Available In-Office Order Internal Use Only DO Not Attach Compendium DO Not Attach Compendium, Do Not Delete/merge, 01/30/2022 11:33:19 01/31/20 22 01/30/2022 urina lysis , dipst ick Blood Non-He molyze d: Trace Not Available In-Office Order Internal Use Only DO Not Attach Compendium DO Not Attach Compendium, Do Not Delete/merge, 01/30/2022 11:33:01/31/20 22 01/30/2022 urina lysis , dipst ick Specific [place] 1.025 Not Available In-Off ice Order Internal Use Only DO Not Attach Compendium DO Not Attach Compendium, Do Not Delete/merge, 01/30/2022 11:33:01/31/20 22 01/30/2022 urina lysis , dipst ick Ketone Negati ve Not Available In-Office Order Internal Use Only DO Not Attach Compendium DO Not Attach Compendium, Do Not Delete/merge, 01/30/2022 11:33:01/31/20 22 01/30/2022 urina lysis , dipst ick Bilirubin Negati ve Not Available In-Office Order Internal Use Only DO Not Attach Compendium DO Not Attach Compendium, Do Not Delete/merge, 01/30/2022 11:33:01/31/20 22 01/30/2022 urina lysis , dipst ick Glucose Negati ve Not Available In-Office Order Internal Use Only DO Not Attach Compendium DO Not Attach Compendium, Do Not Delete/merge, 01/30/2022 11:33:01/31/20 22 01/30/2022 urina lysis , dipst ick Appearance Clear Not Available In-Offi ce Order Internal Use Only DO Not Attach Compendium DO Not Attach Compendium, Do Not Delete/merge, 01/30/2022 11:33:01/31/20 22 01/30/2022 urina lysis , dipst ick Color Yellow Not Available In-Office Order Internal Use Only DO Not Attach Compendium DO Not Attach Compendium, Do Not Delete/merge, 01/30/2022 11:33:01/02/20 23 01/02/2023 HCV ANTIB MARY RFX TO QUANT PCR HCV Ab Non Reacti ve nonrea ctive Not Available [facility] ([facility]) [address], [place], [address], 01/02/2023 11:12:45 01/02/20 23 01/02/2023 HSV-2 TYPE SPEC AB, IGG W/RFL X hsv 2 IgG, type spec >23.60 index 0.00-0 .90 above high normal Negat gerson <0.91 Equiv ocal 0.91 - 1.09 Posit gerson >1.09 Note: Negat gerson indic ates no HSV-2 antib odies detec isabel. Posit gerson indic ates HSV-2 antib odies detec isabel. Equiv ocal and low posit gerson HSV-2 scree ns (Inde x 0.91- 5.00) may be false posit gerson and are refle xed to suppl mala al testi ng in accor dance with [facility] guide lines . Eff ectiv e Septe mber 2022, this profi le will be made non-o rdera ble due to the disco ntinu ation of reage nts by the [facility] actur er. Suppl emsteve al testi ng of speci mens with low-p ositi ve HSV-2 type- speci fic IgG antib mary test resul ts can no longe r be perfo rmed. [facility] Offer s: 06570 8 HSV-2 Ab, IgG, [address]48 9 HSV 1 and 2 [place], [place], [place] [address] 1 Prena t Infec t Dis Ab, IgG. Not Available [facility] ([facility]) [address] [place], [address], 01/02/2023 11:12:46 01/02/2001/02/2023 TSH+F REE T4 TSH 1.320 uIU/m L 0.450- 4.500 Not Available [facility] ([facility]) [address] [place], [address], 01/02/2023 11:12:47 01/02/20 23 01/02/2023 TSH+F REE T4 T4,free(dire ct) 1.39 NG/dL 0.82-1 .77 Not Available [facility] ([facility]) [address] [place], [address], 01/02/2023 11:12:47 01/02/20 23 01/02/2023 HBSAG SCREE N HBsAg screen Negati ve negati ve Not Available [facility] ([facility]) [address] [facility] [address], [place], [address], 01/02/2023 11:12:48 01/02/20 23 01/02/2023 RPR, RFX QN RPR/C ONFIR M TP RPR Non Reacti ve nonrea ctive Not Available [facility] ([facility]) [address] [facility] [address], [place], [address], 01/02/2023 11:12:48 01/02/20 23 01/02/2023 HIV AB/P2 4 AG WITH REFLE X HIV Ab/P24 Ag screen Non Reacti ve nonrea ctive HIV Negat gerson HIV-1 /HIV- 2 antib odies and HIV-1 p24 antig en were NOT detec isabel. There is no labor atory evide nce of HIV infec tion. Not Available [facility] ([facility]) [address] [place], [address], 01/02/2023 11:12:49 01/02/20 23 01/03/2023 IGP,C TNGTV ,RFX APTIM A HPV ASCU chlamydia, nuc. acid amp Negati ve negati ve Not Available [facility] ([facility]) [address] [place], [address], 01/05/2023 16:14:22 01/02/20 23 01/03/2023 IGP,C TNGTV ,RFX APTIM A HPV ASCU gonococcus, nuc. acid amp Negati ve negati ve Not Available [facility] ([facility]) [address] [place], [address], 01/05/2023 16:14:22 01/02/20 23 01/03/2023 IGP,C TNGTV ,RFX APTIM A HPV ASCU trich vag by COURTNEY Negati ve negati ve Not Available [facility] ([facility]) [address] [place], [address], 01/05/2023 16:14:22 01/02/20 23 01/05/2023 IGP,C TNGTV ,RFX APTIM A HPV ASCU diagnosis: Vincent blackman NEGAT GERSON FOR INTRA EPITH ELIAL PHUONG Reeves OR LEONARDO BROWN . PREDO MINAN CE OF [place] BACIL LI CONSI STENT WITH SHIFT IN VAGIN AL MESERET IS PRESE NT. THIS SPECI MEN WAS RESCR EENED PART OF OUR QUALI TY CONTR OL PROGR AM. Not Available [facility] ([facility]) [address] [place], [address], 01/05/2023 16:14:22 01/02/20 23 01/05/2023 IGP,C TNGTV ,RFX APTIM A HPV ASCU specimen adequacy: Vincent t Satis facto ry for evalu ation . Endoc ervic al and/o r squam ous metap lasti c cells (endo cervi jennie compo nent) are prese nt. Not Available [facility] ([facility]) [address] [place], [address], 01/05/2023 16:14:22 01/02/20 23 01/05/2023 IGP,C TNGTV ,RFX APTIM A HPV ASCU clinician provided ICD10: Vincent blackman Z11.3 Z01.4 19 N92.0 Not Available [facility] ([facility]) [address] [place], [address], 01/05/2023 16:14:22 01/02/20 23 01/05/2023 IGP,C TNGTV ,RFX APTIM A HPV ASCU performed by: Vincent reeves, Cytot juancarlos blackman (ASCP ) Not Available [facility] ([facility]) [address] [place], [address], 01/05/2023 16:14:22 01/02/20 23 01/05/2023 IGP,C TNGTV ,RFX APTIM A HPV ASCU QC reviewed by: Raquel Jacobson (ASCP ) Not Available [facility] ([facility]) [address] [place], [address], 01/05/2023 16:14:22 01/02/20 23 01/05/2023 IGP,C TNGTV ,RFX APTIM A HPV ASCU . . Not Available [facility] ([facility]) [address] [place], [address], 01/05/2023 16:14:22 01/02/20 23 01/05/2023 IGP,C TNGTV ,RFX APTIM A HPV ASCU note: Vincent blackman The Pap smear is a scree jerry test desel duron to aid in the detec tion of omari ligna nt and malig nant condi tions of the uteri ne cervi x. It is not a diagn ostic proce dure and shoul d not be used as the sole means of detec ting cervi jennie cance r. Both false -posi tive and false -nega tive repor ts do occur . Not Available [facility] ([facility]) [address] [place], [address], 01/05/2023 16:14:22 01/02/20 23 01/05/2023 IGP,C TNGTV ,RFX APTIM A HPV ASCU test methodology: Vincent blackman This liqui d based ThinP rep(R ) pap test was scree oliverio with the use of an image guide aubree cabrera Not Available [facility] ([facility]) [address] [place], [address], 01/05/2023 16:14:22 01/02/20 23 01/05/2023 IGP,C TNGTV ,RFX APTIM A HPV ASCU . Commen t The HPV DNA refle x crite claus were not met with this speci men resul t there fore, no HPV testi ng was perfo rmed. Not Available [facility] ([facility]) [address] [facility] [address], [place], [address], 01/05/2023 16:14:22 01/02/20 23 01/02/2023 INTER PRETA TION: interpretati on: Commen t Not infec isabel with HCV unles s early or acute infec tion is suspe cted (whic h may be delay ed in an immun ocomp romis ed indiv idual ), or other evide nce exist s to indic ate HCV infec tion. Not Available [facility] ([facility]) [address] [facility] [address], [place], [address], 01/02/2023 11:12:45 01/02/2001/01/2023 urina lysis , dipst ick Leukocytes Negati ve Not Available In-Office Order Internal Use Only DO Not Attach Compendium DO Not Attach Compendium, Do Not Delete/merge, [id number] 01/01/2023 14:51:55 01/02/20 23 01/01/2023 urina lysis , dipst ick Nitrite negati ve Not Available In-Office Order Internal Use Only DO Not Attach Compendium DO Not Attach Compendium, Do Not Delete/merge, [id number] 01/01/2023 14:51:55 01/02/20 23 01/01/2023 urina lysis , dipst ick Urobilinogen .2 Not Available In-Of fice Order Internal Use Only DO Not Attach Compendium DO Not Attach Compendium, Do Not Delete/merge, [id number] 01/01/2023 14:51:55 01/02/20 23 01/01/2023 urina lysis , dipst ick Protein 30 Not Available In-Office Order Internal Use Only DO Not Attach Compendium DO Not Attach Compendium, Do Not Delete/merge, [id number] 01/01/2023 14:51:55 01/02/20 23 01/01/2023 urina lysis , dipst ick pH 6.5 Not Available In-Office Order Internal Use Only DO Not Attach Compendium DO Not Attach Compendium, Do Not Delete/merge, 01/01/2023 14:51:55 01/02/2001/01/2023 urina lysis , dipst ick Blood Negati ve Not Available In-Office Order Internal Use Only DO Not Attach Compendium DO Not Attach Compendium, Do Not Delete/merge, 01/01/2023 14:51:55 01/02/20 23 01/01/2023 urina lysis , dipst ick Specific [place] 1.025 Not Available In-Off ice Order Internal Use Only DO Not Attach Compendium DO Not Attach Compendium, Do Not Delete/merge, 01/01/2023 14:51:55 01/02/20 23 01/01/2023 urina lysis , dipst ick Ketone Trace Not Available In-Office Order Internal Use Only DO Not Attach Compendium DO Not Attach Compendium, Do Not Delete/merge, 01/01/2023 14:51:55 01/02/20 23 01/01/2023 urina lysis , dipst ick Bilirubin Negati ve Not Available In-Office Order Internal Use Only DO Not Attach Compendium DO Not Attach Compendium, Do Not Delete/merge, 01/01/2023 14:51:55 01/02/20 23 01/01/2023 urina lysis , dipst ick Glucose Negati ve Not Available In-Office Order Internal Use Only DO Not Attach Compendium DO Not Attach Compendium, Do Not Delete/merge, 01/01/2023 14:51:55 01/02/20 23 01/01/2023 urina lysis , dipst ick Appearance Slight ly Cloudy Not Available In-Office Order Internal Use Only DO Not Attach Compendium DO Not Attach Compendium, Do Not Delete/merge, 01/01/2023 14:51:55 01/02/20 23 01/01/2023 urina lysis , dipst ick Color Yellow Not Available In-Office Order Internal Use Only DO Not Attach Compendium DO Not Attach Compendium, Do Not Delete/merge, 01/01/2023 14:51:55 07/31/19 24 08/01/2023 CT, NG, TRICH VAG BY COURTNEY chlamydia by COURTNEY Negati ve negati ve Not Available [facility] ([facility]) [address] [facility], [place], [address], 08/02/2023 07:14:53 07/31/19 24 08/01/2023 CT, NG, TRICH VAG BY COURTNEY gonococcus by COURTNEY Negati ve negati ve Not Available [facility] ([facility]) [address] [facility], [place], [address], 08/02/2023 07:14:53 07/31/1908/01/2023 CT, NG, TRICH VAG BY COURTNEY trich vag by COURTNEY Negati ve negati ve Not Available [facility] ([facility]) [address] [facility], [place], [address], 08/02/2023 07:14:53 07/31/19 24 08/01/2023 HGB FRACT IONAT ION CASCA DE HGB F 0.6 % 0.0-2. 0 Not Available [facility] ([facility]) [address] [place], [address], 09/06/2023 07:17:36 07/31/19 24 08/01/2023 HGB FRACT IONAT ION CASCA DE HGB A 96.8 % 96.4-9 8.8 Not Available [facility] ([facility]) [address] [place], [address], 09/06/2023 07:17:36 07/31/19 24 08/01/2023 HGB FRACT IONAT ION CAS[place] DE HGB A2 2.6 % 1.8-3. 2 Not Available [facility] ([facility]) [address] [place], [address], 09/06/2023 07:17:36 07/31/19 24 08/01/2023 HGB FRACT IONAT ION CASCA DE HGB S 0.0 % 0.0 Not Available [facility] ([facility]) [address] [facility], [place], [address], 09/06/2023 07:17:36 07/31/19 24 08/01/2023 HGB FRACT IONAT ION CASCA DE interpretati on: Commen t Lori l hemog lobin prese nt; no hemog lobin varia nt or beta thala ssemi a ident ified . Note: Alpha thala ssemi a may not be detec isabel by the Hgb Fract ionat ion [place] panel . If alpha thala ssemi a is suspe cted, [facility] offer s Alpha -Thal assem ia DNA Roosevelt sis (#[phone]). Not Available [facility] ([facility]) [address] [facility], [place], [address], 09/06/2023 07:17:36 07/31/19 24 08/01/2023 INTER PRETA TION: interpretati on: Commen t Not infec isabel with HCV unles s early or acute infec tion is suspe cted (whic h may be delay ed in an immun ocomp romis ed indiv idual ), or other evide nce exist s to indic ate HCV infec tion. Not Available [facility] ([facility]) [address] [facility], [place], [address], 09/06/2023 07:17:37 07/31/19 24 08/01/2023 PREGN JEANCARLOS, INITI AL SCREE N HBsAg screen Negati ve negati ve Not Available [facility] ([facility]) [address] [facility], [place], [address], 09/06/2023 07:17:37 07/31/19 24 08/01/2023 PREGN JEANCARLOS, INITI AL SCREE N HCV Ab Non Reacti ve nonrea ctive Not Available [facility] ([facility]) [address] [facility], [place], [address], 09/06/2023 07:17:37 07/31/19 24 08/01/2023 PREGN JEANCARLOS, INITI AL SCREE N RPR Non Reacti ve nonrea ctive Not Available [facility] ([facility]) [address] [facility], [place], [address], 09/06/2023 07:17:37 07/31/19 24 08/01/2023 PREGN JEANCARLOS, INITI AL SCREE N rubella antibodies, IgG 2.14 index immune >0.99 Non-i mmune <0.90 Equiv ocal 0.90 - 0.99 Immun e >0.99 Not Available [facility] ([facility]) [address] [facility], [place], [address], 09/06/2023 07:17:37 07/31/19 24 08/01/2023 PREGN JEANCARLOS, INITI AL SCREE N ABO grouping B Not Available [facility] ([facility]) [address] [facility], [place], [address], 09/06/2023 07:17:37 07/31/19 24 08/01/2023 PREGN JEANCARLOS, INITI AL SCREE N Rh factor Positi ve Pleas e note: Prior recor ds for this patie nt's ABO / Rh type are not avail able for addit ional verif icati on. Not Available [facility] ([facility]) [address] [facility], [place], [address], 09/06/2023 07:17:37 07/31/19 24 08/01/2023 PREGN JEANCARLOS, INITI AL SCREE N antibody screen Negati ve negati ve Not Available [facility] ([facility]) [address] [facility], [place], [address], 09/06/2023 07:17:37 07/31/19 24 08/01/2023 PREGN JEANCARLOS, INITI AL SCREE N HIV Ab/P24 Ag screen Non Reacti ve nonrea ctive HIV Negat gerson HIV-1 /HIV- 2 antib odies and HIV-1 p24 antig en were NOT detec isabel. There is no labor atory evide nce of HIV infec tion. Not Available [facility] ([facility]) [address] [facility], [place], [address], 09/06/2023 07:17:37 07/31/19 24 08/01/2023 PREGN JEANCARLOS, INITI AL SCREE N WBC 9.0 x10e3 /uL 3.4-10 .8 Not Available [facility] ([facility]) [address] [place], [address], 09/06/2023 07:17:37 07/31/19 24 08/01/2023 PREGN JEANCARLOS, INITI AL SCREE N RBC 4.16 x10e6 /uL 3.77-5 .28 Not Available [facility] ([facility]) [address] [place], [address], 09/06/2023 07:17:37 07/31/19 24 08/01/2023 PREGN JEANCARLOS, INITI AL SCREE N hemoglobin 11.3 g/dL 11.1-1 5.9 Not Available [facility] ([facility]) [address] [place], [address], 09/06/2023 07:17:37 07/31/19 24 08/01/2023 PREGN JEANCARLOS, INITI AL SCREE N hematocrit 34.9 % 34.0-4 6.6 Not Available [facility] ([facility]) [address] [place], [address], 09/06/2023 07:17:37 07/31/19 24 08/01/2023 PREGN JEANCARLOS, INITI AL SCREE N MCV 84 fL 79-97 Not Available [facility] ([facility]) [address] [place], [address], 09/06/2023 07:17:37 07/31/19 24 08/01/2023 PREGN JEANCARLOS, INITI AL SCREE N MCH 27.2 pg 26.6-3 3.0 Not Available [facility] ([facility]) [address] [facility], [place], [address], 09/06/2023 07:17:37 07/31/19 24 08/01/2023 PREGN JEANCARLOS, INITI AL SCREE N MCHC 32.4 g/dL 31.5-3 5.7 Not Available [facility] ([facility]) [address] [facility], [place], [address], 09/06/2023 07:17:37 07/31/19 24 08/01/2023 PREGN JEANCARLOS, INITI AL SCREE N RDW 13.9 % 11.7-1 5.4 Not Available [facility] ([facility]) [address] [facility], [place], [address], 09/06/2023 07:17:37 07/31/19 24 08/01/2023 PREGN JEANCARLOS, INITI AL SCREE N platelets 408 x10e3 /uL 150-45 0 Not Available [facility] ([facility]) [address] [facility], [place], [address], 09/06/2023 07:17:37 07/31/19 24 08/01/2023 PREGN JEANCARLOS, INITI AL SCREE N neutrophils 71 % notest ab. Not Available [facility] ([facility]) [address] [facility], [place], [address], 09/06/2023 07:17:37 07/31/19 24 08/01/2023 PREGN JEANCARLOS, INITI AL SCREE N lymphs 22 % notest ab. Not Available [facility] ([facility]) [address] [facility], [place], [address], 09/06/2023 07:17:37 07/31/19 24 08/01/2023 PREGN JEANCARLOS, INITI AL SCREE N monocytes 6 % notest ab. Not Available [facility] ([facility]) [address] [facility], [place], [address], 09/06/2023 07:17:37 07/31/19 24 08/01/2023 PREGN JEANCARLOS, INITI AL SCREE N eos 1 % notest ab. Not Available [facility] ([facility]) [address] [place], [address], 09/06/2023 07:17:37 07/31/19 24 08/01/2023 PREGN JEANCARLOS, INITI AL SCREE N basos 0 % notest ab. Not Available [facility] ([facility]) [address] [place], [address], 09/06/2023 07:17:37 07/31/19 24 08/01/2023 PREGN JEANCARLOS, INITI AL SCREE N neutrophils (absolute) 6.4 x10e3 /uL 1.4-7. 0 Not Available [facility] ([facility]) [address] [place], [address], 09/06/2023 07:17:37 07/31/19 24 08/01/2023 PREGN JEANCARLOS, INITI AL SCREE N lymphs (absolute) 2.0 x10e3 /uL 0.7-3. 1 Not Available [facility] ([facility]) [address] [place], [address], 09/06/2023 07:17:37 07/31/19 24 08/01/2023 PREGN JEANCARLOS, INITI AL SCREE N monocytes(ab solute) 0.5 x10e3 /uL 0.1-0. 9 Not Available [facility] ([facility]) [address] [place], [address], 09/06/2023 07:17:37 07/31/19 24 08/01/2023 PREGN JEANCARLOS, INITI AL SCREE N eos (absolute) 0.1 x10e3 /uL 0.0-0. 4 Not Available [facility] ([facility]) [address] [place], [address], 09/06/2023 07:17:37 07/31/19 24 08/01/2023 PREGN JEANCARLOS, INITI AL SCREE N baso (absolute) 0.0 x10e3 /uL 0.0-0. 2 Not Available [facility] ([facility]) [address] [facility], [place], [address], 09/06/2023 07:17:37 07/31/19 24 08/01/2023 PREGN JEANCARLOS, INITI AL SCREE N immature granulocytes 0 % notest ab. Not Available [facility] ([facility]) [address] [facility], [place], [address], 09/06/2023 07:17:37 07/31/19 24 08/01/2023 PREGN JEANCARLOS, INITI AL SCREE N immature grans (abs) 0.0 x10e3 /uL 0.0-0. 1 Not Available [facility] ([facility]) [address] [facility], [place], [address], 09/06/2023 07:17:37 07/31/19 24 08/01/2023 PREGN JEANCARLOS, INITI AL SCREE N specific gravity >=1.03 0 1.005- 1.030 abnormal Not Available [facility] ([facility]) [address] [facility], [place], [address], 09/06/2023 07:17:37 07/31/19 24 08/01/2023 PREGN JEANCARLOS, INITI AL SCREE N pH 6.5 5.0-7. 5 Not Available [facility] ([facility]) [address] [place], [address], 09/06/2023 07:17:37 07/31/19 24 08/01/2023 PREGN JEANCARLOS, INITI AL SCREE N urine-color Yellow yellow Not Available [facility] ([facility]) [address] [place], [address], 09/06/2023 07:17:37 07/31/19 24 08/01/2023 PREGN JEANCARLOS, INITI AL SCREE N appearance Cloudy clear abnormal Not Available [facility] ([facility]) [address] [place], [address], 09/06/2023 07:17:37 07/31/19 24 08/01/2023 PREGN JEANCARLOS, INITI AL SCREE N WBC esterase 1+ negati ve abnormal Not Available [facility] ([facility]) [address] [place], [address], 09/06/2023 07:17:37 07/31/19 24 08/01/2023 PREGN JEANCARLOS, INITI AL SCREE N protein 1+ negati ve/tra ce abnormal Not Available [facility] ([facility]) [address] [facility], [place], [address], 09/06/2023 07:17:37 07/31/19 24 08/01/2023 PREGN JEANCARLOS, INITI AL SCREE N glucose Negati ve negati ve Not Available [facility] ([facility]) [address] [place], [address], 09/06/2023 07:17:37 07/31/19 24 08/01/2023 PREGN JEANCARLOS, INITI AL SCREE N ketones Trace negati ve abnormal Not Available [facility] ([facility]) [address] [place], [address], 09/06/2023 07:17:37 07/31/19 24 08/01/2023 PREGN JEANCARLOS, INITI AL SCREE N occult blood Negati ve negati ve Not Available [facility] ([facility]) [address] [place], [address], 09/06/2023 07:17:37 07/31/19 24 08/01/2023 PREGN JEANCARLOS, INITI AL SCREE N bilirubin Negati ve negati ve Not Available [facility] ([facility]) [address] [place], [address], 09/06/2023 07:17:37 07/31/19 24 08/01/2023 PREGN JEANCARLOS, INITI AL SCREE N urobilinogen ,semi-qn 0.2 mg/dL 0.2-1. 0 Not Available [facility] ([facility]) [address] [facility], [place], [address], 09/06/2023 07:17:37 07/31/19 24 08/01/2023 PREGN JEANCARLOS, INITI AL SCREE N nitrite, urine Negati ve negati ve Not Available [facility] ([facility]) [address] [facility], [place], [address], 09/06/2023 07:17:37 07/31/19 24 08/01/2023 PREGN JEANCARLOS, INITI AL SCREE N microscopic examination See below: Micro scopi c was indic ated and was perfo rmed. Not Available [facility] ([facility]) [address] [facility], [place], [address], 09/06/2023 07:17:37 07/31/19 24 08/02/2023 PREGN JEANCARLOS, INITI AL SCREE N chlamydia trachomatis, COURTNEY Negati ve negati ve Not Available [facility] ([facility]) [address] [place], [address], 09/06/2023 07:17:37 07/31/19 24 08/02/2023 PREGN JEANCARLOS, INITI AL SCREE N neisseria gonorrhoeae, COURTNEY Negati ve negati ve Not Available [facility] ([facility]) [address] [place], [address], 09/06/2023 07:17:37 07/31/19 24 08/02/2023 PREGN JEANCARLOS, INITI AL SCREE N urine culture,pren atal, w/gbs Final report Not Available [facility] ([facility]) [address] [place], [address], 09/06/2023 07:17:37 07/31/19 24 08/01/2023 MICRO SCOPI C EXAMI NATIO N WBC 0-5 /hpf 0-5 Not Available [facility] ([facility]) [address] [facility], [place], [address], 09/06/2023 07:17:38 07/31/19 24 08/01/2023 MICRO SCOPI C EXAMI NATIO N RBC 0-2 /hpf 0-2 Not Available [facility] ([facility]) [address] [facility], [place], [address], 09/06/2023 07:17:38 07/31/19 24 08/01/2023 MICRO SCOPI C EXAMI NATIO N epithelial cells (non renal) >10 /hpf 0-10 abnormal Not Available [facility] ([facility]) [address] [facility], [place], [address], 09/06/2023 07:17:38 07/31/19 24 08/01/2023 MICRO SCOPI C EXAMI NATIO N casts None seen /lpf nonese en Not Available [facility] ([facility]) [address] [facility], [place], [address], 09/06/2023 07:17:38 07/31/19 24 08/01/2023 MICRO SCOPI C EXAMI NATIO N bacteria Modera te nonese en/few abnormal Not Available [facility] ([facility]) [address] [facility], [place], [address], 09/06/2023 07:17:38 07/31/19 24 08/01/2023 UA/M W/RFL X CULTU RE, ROUTI NE urinalysis reflex Commen t This speci men has refle xed to a Urine Cultu re. Not Available [facility] ([facility]) [address] [facility], [place], [address], 09/06/2023 07:17:39 07/31/19 24 09/05/2023 CYSTI C FIBRO SIS, 97 VARIA NTS ethnicity Commen t Not Provi ded Not Available [facility] ([facility]) [address] [place], [address], 09/06/2023 07:17:39 07/31/19 24 09/05/2023 CYSTI C FIBRO SIS, 97 VARIA NTS specimen type Commen t Whole Blood Not Available [facility] ([facility]) [address] [facility], [place], [address], 09/06/2023 07:17:39 07/31/19 24 09/05/2023 CYSTI C FIBRO SIS, 97 VARIA NTS indication Commen t Ivory er Test / Scree jerry Not Available [facility] ([facility]) [address] [facility], [place], [address], 09/06/2023 07:17:39 07/31/19 24 09/05/2023 CYSTI C FIBRO SIS, 97 VARIA NTS result: Commen t NEGAT GERSON Not Available [facility] ([facility]) [address] [facility], [place], [address], 09/06/2023 07:17:39 07/31/19 24 09/05/2023 CYSTI C FIBRO SIS, 97 VARIA NTS interpretati on Commen t Negat gerson Resul ts Disor ders (Gene ) Resul t Inter preta tion Cysti c fibro sis NEGAT GERSON This resul t reduc es, (CFTR ) but does not NM_00 0492. 4 elimi olena, the risk to be a ivory er. Risk: At reduc ed risk for an affec isabel pregn jeancarlos. For ethni c-spe cific risk iwona ions see Infor amandeep n Table . Not Available [facility] ([facility]) [address] [place], [address], 09/06/2023 07:17:39 07/31/19 24 09/05/2023 CYSTI C FIBRO SIS, 97 VARIA NTS recommendati ons Commen t If the above resul t is posit gerson, ghassan ic couns vickey is recom armaan d to discu ss the poten tial clini jennie and/o r repro ducti ve impli catio ns, as well as recom menda tions for testi ng famil y membe rs and, when appli cable , this indiv idual 's partn er. Ghassan ic couns vickey servi denzel are avail able. To acces s [facility] Ghassan ic Couns elors plefranklin e visit [email or web address] :[email or web address] [email or web address] -coun emerson g or call ([email or web address]) GC-CA LLS [phone]). Not Available [facility] ([facility]) [address] [facility], [place], [address], 09/06/2023 07:17:39 07/31/19 24 09/05/2023 CYSTI C FIBRO SIS, 97 VARIA NTS additional clinicalinfo rmation Commen t Cysti c fibro sis (CF) is an autos omal reces sive disor yeny with varia ble sever ity and age at onset . Signs and sympt oms of class ic CF may inclu de eleva isabel sweat chlor carmen level s, progr essiv e lung disea se, pancr eatic insuf ficie ncy, and male infer tilit y. Sympt oms of mild CF may inclu de pancr eatic suffi cienc y. Sympt oms of CFTR- relat ed disor ders may inclu de pancr eatit is, bronc hiect asis, and isola isabel male infer tilit y due to conge nital absen ce of the vas defer ens (CBAV D). Treat ment is dieta ry and suppo rtive . Genot ype-t arget ed thera pies may be avail able for some indiv idual s. In sever christy affec isabel indiv idual s, lung trans plant ation may be indic ated. (PMID :2030 1428) . Not Available [facility] ([facility]) [address] [facility], [place], [address], 09/06/2023 07:17:39 07/31/19 24 09/05/2023 CYSTI C FIBRO SIS, 97 VARIA NTS comments Commen t This inter preta tion is based on the clini jennie infor amandeep n provi ded and the curre nt under stand ing of the [employer] ular ghassan ics of the disor yeny(s ) teste d. Infor matjuan n about the disor yeny(s ) teste d is avail able at https :[email or web address] om. Not Available [facility] ([facility]) [address] [facility], [place], [address], 09/06/2023 07:17:39 07/31/19 24 09/05/2023 CYSTI C FIBRO SIS, 97 VARIA NTS methods/limi tations Commen t Next- gener ation Seque ncing : Genom ic regio ns of inter est in the CFTR gene are selec isabel using the [employer] ience s(R) hybri dizat ion captu re metho d and seque nced via the Ill[employer] jim(R ) next gener ation seque ncing platf orm. Seque ncing reads are align ed with the human genom e refer ence GRCh3 7/hg1 9 build . Regio ns of inter est inclu de genom ic regio ns encom passi ng targe isabel varia nts. Roosevelt tical sensi tivit y at 30X cover age is estim ated to be >99% for singl e nucle otide varia nts, >99% for inser tions /sabiha tions less than six base pairs and >96% for inser tions /sabiha tions betwe en six and forty -five base pairs . Varia nt detec tion is perfo rmed by MONET Reeves [facility] [employer] and in-ho use algor ithms . Confi rmato ry testi ng is done by Sange r seque ncing . Varia nts are speci fied using the numbe ring and nomen clatu re recom armaan d by the Human Genom e Varia tion Socie ty (HGVS , http: //www .hgvs .org/ ). Varia nt class ifica tion and confi rmati on are consi stent with ACMG stand ards and guide lines (Rich ards, PMID: 10045 868; Devon, PMID: 49833 774). Roosevelt sis is restr icted to [address] CF varia nts, liste d below . c.54- 5940_ 273+1 0250d el21k b, c.178 G>T (p.Gl u60*) , c.223 C>T (p.Ar g75*) , c.254 G>A (p.Gl y85Gl u), c.262 _263d elTT (p.Le u88Il efs*2 2), c.273 +1G>A , c.273 +3A>C , c.274 -1G>A , c.274 G>T (p.Gl u92*) , c.313 Florina (p.Il e105S erfs* 2), c.325 _327d elins G (p.Ty r109G lyfs* 4), c.349 C>T (p.Ar g117C ys), c.350 G>A (p.Ar g117H is), c.366 T>A (p.Ty r122* ), c.442 Florina (p.Il e148L eufs* 5), c.489 +1G>T , c.531 delT (p.Il e177M etfs* 12), c.532 G>A (p.Gl y178A rg), c.579 +1G>T , c.579 +5G>A , c.580 -1G>T , c.617 T>G (p.Le u206T rp), c.803 Florina (p.As n268I lefs* 17), c.805 _806d elAT (p.Il e269P rofs* 4), c.935 _937d elTCT (p.Ph e312d el), c.948 delT (p.Ph e316L eufs* 12), c.988 G>T (p.Gl y330* ), c.100 0C>T (p.Ar g334T rp), c.101 3C>T (p.Th r338I le), c.104 0G>A (p.Ar g347H is), c.104 0G>C (p.Ar g347P ro), c.105 5G>A (p.Ar g352G ln), c.[10 75C>A ;1079 C>A] (p.[G ln359 Mary Alice;T hr360 Mary Alice]) , c.115 5_115 6dupT A (p.As n386I lefs* 3), c.136 4C>A (p.Al a455G roc), c.143 8G>T (p.Gl y480C ys), c.147 7C>T (p.Gl n493* ), c.151 9_152 1delA TC (p.Il e507d el), c.152 1_152 3delC TT (p.Ph e508d el), c.154 5_154 6delT A (p.Ty r515* ), c.155 8G>T (p.Va l520P he), c.157 2C>A (p.Cy s524* ), c.158 5-1G> A, c.162 4G>T (p.Gl y542* ), c.164 6G>A (p.Se r549A sn), c.164 7T>G (p.Se r549A rg), c.165 2G>A (p.Gl y551A sp), c.165 4C>T (p.Gl n552* ), c.165 7C>T (p.Ar g553* ), c.167 5G>A (p.Al a559T hr), c.167 9G>C (p.Ar g560T hr), c.168 0-1G> A, c.172 1C>A (p.Pr o574H is), c.176 6+1G> A, c.176 6+5G> T, c.182 0_190 3del8 4 (p.Me t607_ Gln63 4del) , c.191 1delG (p.Gl n637H isfs* 26), c.192 3_193 1deli nsA (p.Se r641A rgfs* 5), c.197 3_198 5deli nsAGA AA (p.Ar g658L ysfs* 4), c.197 6delA (p.As n659I lefs* 4), c.201 2delT (p.Le u671* ), c.205 1_205 2deli nsG (p.Ly s684S erfs* 38), c.205 2delA (p.Ly s684A snfs* 38), c.205 2dupA (p.Gl n685T hrfs* 4), c.212 5C>T (p.Ar g709* ), c.212 8A>T (p.Ly s710* ), c.217 5dupA (p.Gl u726A rgfs* 4), c.229 0C>T (p.Ar g764* ), c.265 7+5G> A, c.266 8C>T (p.Gl n890* ), c.273 7_273 8insG (p.Ty r913* ), c.298 8G>A (p.Gl n996= ), c.298 8+1G> A, c.303 9delC (p.Ty r1014 Thrfs *9), c.306 7_307 2delA TAGTG (p.Il e1023 _Val1 024de l), c.319 6C>T (p.Ar g1066 Cys), c.326 6G>A (p.Tr p1089 *), c.327 6C>A (p.Ty r1092 *), c.327 6C>G (p.Ty r1092 *), c.330 2T>A (p.Me t1101 Mary Alice), c.345 4G>C (p.As p1152 His), c.347 2C>T (p.Ar g1158 *), c.348 4C>T (p.Ar g1162 *), c.352 8delC (p.Ly s1177 Serfs *15), c.353 6_353 9delC CAA (p.Th r1179 Asnfs *12), c.358 7C>G (p.Se r1196 *), c.361 1G>A (p.Tr p1204 *), c.365 9delC (p.Th r1220 Lysfs *8), c.371 2C>T (p.Gl n1238 *), c.371 8-247 7C>T, c.374 4delA (p.Ly s1250 Argfs *9), c.375 2G>A (p.Se r1251 Asn), c.376 4C>A (p.Se r1255 *), c.377 3dupT (p.Le u1258 Phefs *7), c.384 6G>A (p.Tr p1282 *), c.388 9dupT (p.Se r1297 Phefs *5), c.390 9C>G (p.As n1303 Mary Alice) Limit ation s: Techn ologi es used do not detec t germl ine mosai cism and do not rule out the prese nce of large chrom osoma l aberr ation s inclu ding rearr angem ents and gene fusio ns, or varia nts in regio ns or genes not inclu ded in this test, or possi ble inter /intr ageni c inter actio ns betwe en varia nts, or repea t expan sions . Varia nt class ifica tion and/o r inter preta tion may wilson e over time if more infor matio n becom es avail able. False posit gerson or false negat gerson resul ts may occur for reaso ns that inclu de: rare ghassan ic varia nts, sex chrom osome abnor malit ies, pseud ogene inter feren ce, blood trans fusio ns, bone marro w trans plant ation , somat ic or tissu e-spe cific mosai cism, misla beled sampl es, or annette eous repre senta tion of famil y relat ionsh ips. This test was devtato goldman and its perfo rmanc e augustus cteri stics deter mined by [facility]. It has not been clear ed or appro danna by the Food and Drug Admin istra tion. Not Available [facility] ([facility]) [address], [place], [address], 09/06/2023 07:17:39 07/31/19 24 09/05/2023 CYSTI C FIBRO SIS, 97 VARIA NTS information table Commen t Cysti c fibro sis, 97 varia nts, risk reduc tions for indiv idual s with no famil y histo ry Popul ation Detec tion rate Pre-t est Post- test ivory er ivory er risk risk with negat gerson resul t Afric an 81% 1 in 61 1 in 316 Nesha le Ashke nazi 97% 1 in 24 1 in 767 Jewis h 55% 1 in 94 1 in 208 Nesha le Cauca megha 93% 1 in 25 1 in 343 Hispa radha 78% 1 in 58 1 in 260 Mixed or For couns eling other ethni c purpo ses, backg round consi yeny using the ethni c backg round with the most conse rvati ve risk estim ates. Not Available [facility] ([facility]) [address] [facility], [place], [address], 09/06/2023 07:17:39 07/31/19 24 09/05/2023 CYSTI C FIBRO SIS, 97 VARIA NTS references Commen t Deign an JL, Astbu ry C, Cutti ng GR et al. CFTR varia nt testi ng: a techn ical stand george of the Nesha le [facility] ge [facility] al [facility] ([facility] ). [facility] 22 1288 (2020 ). PMID: [id number] Nice T, Brayden dumont SG, Melvin mccrary BA, et al. Cysti c Fibro sis and Conge nital Absen ce of the Vas Defer ens. 2000 [Upda isabel 2016Jun 22]. In: Chad MP, Guy russell HH, Rey RA, et al., jennifer chanel. GeneR maya flores(R) [Inte rnet] . PMID: [id number] Not Available [facility] ([facility]) [address] [facility], [place], [address], 09/06/2023 07:17:39 07/31/19 24 09/05/2023 CYSTI C FIBRO SIS, 97 VARIA NTS director review/relea se Commen t [facility] Type Perfo rmed At Labor atory Direc tor Techn ical Labor atory Anjen Chenn , compo nent, Corpo ratio n of , PhD proce ssing [facility], [address] , [place], [address] Techn ical Labor atory Anjen Chenn , compo nent, Corpo ratio n of , PhD roosevelt sis [facility], [address] , [place], [address] Profe ssion al Labor atory Anjen Chenn , compo nent Corpo ratio n of , PhD [facility], [address] , [place], [address] Elect julisa carter relea sed by Lydia Vann, PhD, [facility] Not Available [facility] ([facility]) [address] [place], [address], 09/06/2023 07:17:39 07/31/19 24 09/05/2023 CYSTI C FIBRO SIS, 97 VARIA NTS pdf . Not Available [facility] ([facility]) [address] [place], [address], 09/06/2023 07:17:39 07/31/19 24 08/01/2023 [id number] 9 10 DRUG- BUND amphetamines , urine Negati ve NG/mL cutoff =1000 Amphe tamin e test inclu jen Amphe tamin e and Metha mphet amine . Not Available [facility] ([facility]) [address] [place], [address], 09/06/2023 07:17:40 07/31/19 24 08/01/2023 [id number] 9 10 DRUG- BUND barbiturates Negati ve NG/mL cutoff =200 Not Available [facility] ([facility]) [address] [place], [address], 09/06/2023 07:17:40 07/31/19 24 08/01/2023 [id number] 9 10 DRUG- BUND benzodiazepi jeffery Negati ve NG/mL cutoff =200 Not Available [facility] ([facility]) [address] [facility], [place], [address], 09/06/2023 07:17:40 07/31/19 24 08/01/2023 [id number] 9 10 DRUG- BUND cannabinoid See Final Result s Not Available [facility] ([facility]) [address] [facility], [place], [address], 09/06/2023 07:17:40 07/31/19 24 08/01/2023 [id number] 9 10 DRUG- BUND cocaine (metab.) Negati ve NG/mL cutoff =300 Not Available [facility] ([facility]) [address] [facility], [place], [address], 09/06/2023 07:17:40 07/31/19 24 08/01/2023 [id number] 9 10 DRUG- BUND methaqualone Negati ve NG/mL cutoff =300 Not Available [facility] ([facility]) [address] [place], [address], 09/06/2023 07:17:40 07/31/19 24 08/01/2023 [id number] 9 10 DRUG- BUND opiates Negati ve NG/mL cutoff =2000 Opiat e test inclu jen Codei ne and Morph ine only. Not Available [facility] ([facility]) [address] [facility], [place], [address], 09/06/2023 07:17:40 07/31/19 24 08/01/2023 [id number] 9 10 DRUG- BUND phencyclidin e Negati ve NG/mL cutoff =25 Not Available [facility] ([facility]) [address] [place], [address], 09/06/2023 07:17:40 07/31/19 24 08/01/2023 [id number] 9 10 DRUG- BUND methadone screen, urine Negati ve NG/mL cutoff =300 Not Available [facility] ([facility]) [address] [facility], [place], [address], 09/06/2023 07:17:40 07/31/19 24 08/01/2023 [id number] 9 10 DRUG- BUND propoxyphene , urine Negati ve NG/mL cutoff =300 Not Available [facility] ([facility]) [address] [place], [address], 09/06/2023 07:17:40 07/31/19 24 08/06/2023 CANNA BINOI D CONFI RMATI ON, UR cannabinoid Positi ve cutoff =50 abnormal Not Available [facility] ([facility]) [address] [place], [address], 09/06/2023 07:17:41 07/31/19 24 08/06/2023 CANNA BINOI D CONFI RMATI ON, UR carboxy THC conf, MS, ur >750 NG/mL cutoff =15 Not Available [facility] ([facility]) [address] [place], [address], 09/06/2023 07:17:41 07/31/1908/01/2023 HCG,B ETA SUBUN IT, QNT HCG,beta subunit,qnt, serum 48319 mIU/m L Femal e (Non- pregn ant) 0 - 5 (Post menop ausal ) 0 - 8 Femal e (Preg nant) Weeks of Gesta tion 3 6 - 71 4 10 - 750 5 496 - 2089 6 330 - 06976 7 0127 -3887 63 8 39090 -7854 71 9 12093 -1514 10 10 83851 -1869 77 12 08106 -5013 12 14 10400 - 59094 15 19874 - 29363 16 5129 - 12248 17 0149 - 11328 18 5849 - 69514 Resul ts confi rmed on dilut ion. Leyla ECLIA metho dolog y Not Available [facility] ([facility]) [address] [place], [address], 09/06/2023 07:17:42 07/31/19 24 08/02/2023 URINE CULTU RE, ROUTI NE urine culture, routine Final report Not Available [facility] ([facility]) [address] [facility], [place], [address], 09/06/2023 07:17:43 07/31/19 24 08/02/2023 URINE CULTU RE, ROUTI NE result 1 No growth Not Available [facility] ([facility]) [address] [facility], [place], [address], 09/06/2023 07:17:43 07/31/19 24 08/02/2023 RESUL T result 1 Commen t Mixed uroge nital meseret 10,00 0-25, 000 colon y formi ng units per mL Not Available [facility] ([facility]) [address] [facility] [address], [place], [address], 09/06/2023 07:17:43 07/31/19 24 08/01/2023 VARIC BRENDA- ZOSTE R V AB, IGG varicella zoster IgG <135 index immune >165 below low normal Negat gerson <135 Equiv ocal 135 - 165 Posit gerson >165 A posit gerson resul t gener ally indic ates expos ure to the patho gen or admin istra tion of speci fic immun oglob ulins , but it is not indic ation of activ e infec tion or stage of disea se. Not Available [facility] ([facility]) [address] [facility] [address], [place], [address], 09/06/2023 07:17:44 07/31/19 24 07/31/2023 urina lysis , dipst ick Leukocytes Small Not Available In-Offi ce Order Internal Use Only DO Not Attach Compendium DO Not Attach Compendium, Do Not Delete/merge, [id number] 07/31/2023 11:48:28 07/31/19 24 07/31/2023 urina lysis , dipst ick Nitrite negati ve Not Available In-Office Order Internal Use Only DO Not Attach Compendium DO Not Attach Compendium, Do Not Delete/merge, 07/31/2023 11:48:28 07/31/19 24 07/31/2023 urina lysis , dipst ick Urobilinogen .2 Not Available In-Of fice Order Internal Use Only DO Not Attach Compendium DO Not Attach Compendium, Do Not Delete/merge, 07/31/2023 11:48:28 07/31/19 24 07/31/2023 urina lysis , dipst ick Protein 30 Not Available In-Office Order Internal Use Only DO Not Attach Compendium DO Not Attach Compendium, Do Not Delete/merge, 07/31/2023 11:48:28 07/31/19 24 07/31/2023 urina lysis , dipst ick pH 6.5 Not Available In-Office Order Internal Use Only DO Not Attach Compendium DO Not Attach Compendium, Do Not Delete/merge, 07/31/2023 11:48:28 07/31/19 24 07/31/2023 urina lysis , dipst ick Blood Negati ve Not Available In-Office Order Internal Use Only DO Not Attach Compendium DO Not Attach Compendium, Do Not Delete/merge, 07/31/2023 11:48:28 07/31/19 24 07/31/2023 urina lysis , dipst ick Specific [place] 1.030 Not Available In-Off ice Order Internal Use Only DO Not Attach Compendium DO Not Attach Compendium, Do Not Delete/merge, 07/31/2023 11:48:28 07/31/19 24 07/31/2023 urina lysis , dipst ick Ketone Negati ve Not Available In-Office Order Internal Use Only DO Not Attach Compendium DO Not Attach Compendium, Do Not Delete/merge, 07/31/2023 11:48:28 07/31/19 24 07/31/2023 urina lysis , dipst ick Bilirubin Negati ve Not Available In-Office Order Internal Use Only DO Not Attach Compendium DO Not Attach Compendium, Do Not Delete/merge, 07/31/2023 11:48:28 07/31/19 24 07/31/2023 urina lysis , dipst ick Glucose Negati ve Not Available In-Office Order Internal Use Only DO Not Attach Compendium DO Not Attach Compendium, Do Not Delete/merge, [id number] 07/31/2023 11:48:28 07/14/1907/15/2024 INTER PRETA TION: interpretati on: Commen t Not infec isabel with HCV unles s early or acute infec tion is suspe cted (whic h may be delay ed in an immun ocomp romis ed indiv idual ), or other evide nce exist s to indic ate HCV infec tion. Not Available [facility] ([facility]) [address] [facility] [address], [place], [address], 07/15/2024 11:13:58 07/14/1907/15/2024 HCV ANTIB MARY RFX TO QUANT PCR HCV Ab NON REACTI VE nonrea ctive Not Available [facility] ([facility]) [address] [facility], [place], [address], 07/15/2024 11:13:59 07/14/19 25 07/15/2024 HBSAG SCREE N HBsAg screen NEGATI VE negati ve Not Available [facility] ([facility]) [address] [facility], [place], [address], 07/15/2024 11:14:00 07/14/19 25 07/15/2024 RPR, RFX QN RPR/C ONFIR M TP RPR NON REACTI VE nonrea ctive Not Available [facility] ([facility]) [address] [place], [address], 07/15/2024 11:14:02 07/14/1907/15/2024 HIV AB/P2 4 AG WITH REFLE X HIV Ab/P24 Ag screen NON REACTI VE nonrea ctive HIV-1 /HIV- 2 antib odies and HIV-1 p24 antig en were NOT detec isabel. There is no labor atory evide nce of HIV infec tion. HIV Negat gerson Not Available [facility] ([facility]) [address] [facility], [place], [address], 07/15/2024 11:14:04 07/14/1907/16/2024 IGP,C TNGTV ,RFX APTIM A HPV ASCU diagnosis: VINCENT HEWITT GERSON FOR INTRA EPITH ELIAL LESIO N OR LEONARDO BROWN . CELLU LAR WILSON ES ASSOC IATED WITH INFLA MMATI ON ARE PRESE NT. Not Available [facility] ([facility]) [address] [facility], [place], [address], 07/16/2024 11:21:57 07/14/1907/16/2024 IGP,C TNGTV ,RFX APTIM A HPV ASCU specimen adequacy: VINCENT Blackman Satis facto ry for evalu ation . Endoc ervic al and/o r squam ous metap lasti c cells (endo cervi jennie compo nent) are prese nt. Not Available [facility] ([facility]) [address] [facility], [place], [address], 07/16/2024 11:21:57 07/14/1907/16/2024 IGP,C TNGTV ,RFX APTIM A HPV ASCU clinician provided ICD10: VINCENT Blackman Z72.5 1 Z01.4 19 Not Available [facility] ([facility]) [address] [facility], [place], [address], 07/16/2024 11:21:57 07/14/1907/16/2024 IGP,C TNGTV ,RFX APTIM A HPV ASCU performed by: VINCENT Gates n, Thuan visor y Cytot juancarlos gonsales t (ASCP ) Not Available [facility] ([facility]) [address] [facility], [place], [address], 07/16/2024 11:21:57 07/14/19 25 07/16/2024 IGP,C TNGTV ,RFX APTIM A HPV ASCU . . Not Available [facility] ([facility]) [address] [place], [address], 07/16/2024 11:21:57 07/14/19 25 07/16/2024 IGP,C TNGTV ,RFX APTIM A HPV ASCU note: COMMEN T The Pap smear is a scree jerry test desel duron to aid in the detec tion of omari ligna nt and malig nant condi tions of the uteri ne cervi x. It is not a diagn ostic proce dure and shoul d not be used as the sole means of detec ting cervi jennie cance r. Both false -posi tive and false -nega tive repor ts do occur . Not Available [facility] ([facility]) [address] [place], [address], 07/16/2024 11:21:57 07/14/19 25 07/16/2024 IGP,C TNGTV ,RFX APTIM A HPV ASCU test methodology: COMMEN T This liqui d based ThinP rep(R ) pap test was scree oliverio with the use of an image guide aubree de los santos. Not Available [facility] ([facility]) [address] [place], [address], 07/16/2024 11:21:57 07/14/19 25 07/16/2024 IGP,C TNGTV ,RFX APTIM A HPV ASCU . COMMEN T The HPV DNA refle x crite claus were not met with this speci men resul t there fore, no HPV testi ng was perfo rmed. Not Available [facility] ([facility]) [address] [place], [address], 07/16/2024 11:21:57 07/14/19 25 07/16/2024 IGP,C TNGTV ,RFX APTIM A HPV ASCU chlamydia, nuc. acid amp NEGATI VE negati ve Not Available [facility] ([facility]) [address] [place], [address], 07/16/2024 11:21:57 07/14/19 25 07/16/2024 IGP,C TNGTV ,RFX APTIM A HPV ASCU gonococcus, nuc. acid amp NEGATI VE negati ve Not Available [facility] ([facility]) [address] [facility], [place], [address], 07/16/2024 11:21:57 07/14/19 25 07/16/2024 IGP,C TNGTV ,RFX APTIM A HPV ASCU trich vag by COURTNEY NEGATI VE negati ve Not Available [facility] ([facility]) [address] [facility], [place], [address], 07/16/2024 11:21:57 12/10/19 22 12/09/2021 US, obste tric, 1st trime ster No observ ation record ed. [facility] Orders [address] [place], [address], 01/11/2022 15:50:40 02/18/20 22 02/16/2022 US, obste tric, mater nal evalu ation + anato my No observ ation record ed. [facility] ([facility]) Scheduling [address] [place], [address], 02/28/2022 17:45:31 04/06/20 22 04/06/2022 US, obste tric, mater nal evalu ation + anato my No observ ation record ed. [facility] [address] [facility] [address] [facility], [place], [address], 04/28/2022 14:52:24 Result Notes None recorded. Problems Name Problem SNOMED Code Status Onset Date Resolution Date Notes Provider Name and Address Organization Details Recorded Time Spasm of back muscles 224511901 Active 2016 Viviane holm [place] - [facility] 7 01:05:13 Mood disorder 61294403 Active 2016 Viviane Mcneill null, [place] - [facility] 7 01:08:06 Well child visit Completed 201607/31/2023 Yariel Bird MD Attn: Del live,[address] [facility], [place], [address], [place] - [facility] 4 13:47:49 Dyspnea on exertion 04403845 Active 2016 Viviane Mcneill [place] - [facility] 7 01:09:41 Vitamin D deficien cy 00244817 Active 2016 Viviane Mcneill [place] [facility] 7 13:22:37 Pregnanc y 82881012 Completed 202106/12/2022 Trista reeves [place], [place] - [facility] 4 09:28:56 Herpesvi willa infectio n 63739702 Completed Ruth Ceballos, SIGNALS ANALYST [place], [place] - [facility] 3 08:41:30 Chlamydi al infectio n 207320331 Completed Ruth Tucker, SIGNALS ANALYST [place], [place] [facility] 3 08:41:30 Genetic finding detected 140008384 Completed NIPT positive for downs syndrome Ruth Ceballos, SIGNALS ANALYST [place], [place] [facility] 3 08:41:30 Varicell a non-immu ne 133188119 Completed Ruth Ceballos, SIGNALS ANALYST [place], [place] - [facility] 3 08:41:30 Genetic finding detected 814852583 Completed 07/31/2023 NIPT positive for downs syndrome Yariel Bird MD Attn: Del calos,[address] [facility], [place], [address], [place] - [facility] 4 13:46:37 Pregnanc y 70269054 Completed 202312/21/2023 Trista reeves [place] null, [place] - [facility] 4 09:28:56 Marijuan a user 174981658 Completed Meagan Segura MD Attn: Del live,[address] [facility], [place], [address], [place] - [facility] 5 12:55:47 Candidia sis of vagina 59890880 Completed 07/31/2023 Yariel Bird MD Attn: Del calos,[address] [place], [address], [place] - [facility] 4 13:46:42 Vaginal discharg e 544993908 Completed 07/31/2023 Yariel Bird MD Attn: Del calos,[address] [place], [address], [place] - [facility] 4 13:46:59 Infectio n by Trichomo kirstie [id number] Completed 07/31/2023 Yariel Bird MD Attn: Del calos,[address] [place], [address], [facility] - [facility] 4 13:46:53 Concussi on injury of brain 560240948 Active Melyssa Subramanian MD Attn: Del live,[address] [facility], [place], [address], [place] - [facility] 6 12:05:19 Crushing injury of multiple sites 872604644 Active Melyssa Subramanian MD Attn: Del live,[address] [place], [address], [place] - [facility] 6 12:05:19 Problem Notes None recorded. Procedures Surgical History Date Name Laterality Status Provider Name and Address Organization Details Recorded Time 5 Date of Last Pap Smear completed Trista Romero [place] - [facility] 07/23/2024 08:22:56 8 Control Implant Removal completed Janina Martinez MD Attn: Accounting,[address] [place], [address], [place] - [facility] 02/05/2018 20:55:01 6 Control Implant Insertion completed Janina Martinez MD Attn: Accounting,[address] [place], [address], [place] - [facility] 06/10/2015 12:16:02 Imaging Results Imaging Date Name Status LastModified by Organiz ation Details LastModified Time 12/09/2021 US, obstetric, 1st trimester completed [facility] [address], [place], [address], 01/11/2022 15:50:40 02/16/2022 US, obstetric, maternal evaluation + anatomy completed [facility] ([facility]) Scheduling [address] [place], [address], 02/28/2022 17:45:31 04/06/2022 US, obstetric, maternal evaluation + anatomy completed [facility] [address] [facility] [facility], [place], [address], 04/28/2022 14:52:24 Procedure Notes None recorded. Medical Equipment None Reported. Allergies No known drug allergies Medications Name Sig Start Date Stop Date Status Note LastModified by Organization Details LastModified Time amoxicillin 500 mg capsule TAKE 1 CAPSULE BY MOUTH 3 TIMES A DAY FOR 10 DAYS 12/01 completed Not Available Not Available Not Available ibuprofen 800 mg tablet 04/16 completed Not Available Not Available Not Available fluconazole 150 mg tablet Take 1 tablet by oral route for 1 day. 12/01 completed Not Available Not Available Not Available hydrocodone 5 mg-acetamin ophen 325 mg tablet TAKE 1 TO 2 TABLETS BY MOUTH EVERY 6 HOURS NEEDED NEEDED FOR PAIN 12/01 completed Not Available Not Available Not Available ondansetron HCl 4 mg tablet 07/14 completed Not Available Not Available Not Available prednisone 20 mg tablet 04/16 completed Not Available Not Available Not Available ceftriaxone 250 mg solution for injection Take 250 mg by injection route. 12/01 completed Not Available Not Available Not Available terconazole 0.8 % vaginal cream Insert 1 applicato rful every day by vaginal route at bedtime for 3 days. 12/01 completed Not Available Not Available Not Available metronidazo le 500 mg tablet TAKE 1 TABLET BY MOUTH TWICE A DAY FOR 7 DAYS 01/01 completed Not Available Not Available Not Available acetaminoph en 300 mg-codeine 30 mg tablet 04/16 completed Not Available Not Available Not Available acyclovir 400 mg tablet Take 1 tablet 3 times a day by oral route as directed for 10 days. 12/01 completed Not Available Not Available Not Available valacyclovi r 500 mg tablet TAKE 1 TABLET BY MOUTH TWICE A DAY active Not Available Not Available No t Available doxycycline monohydrate 100 mg tablet 04/16 completed Not Available Not Available Not Available tramadol 50 mg tablet 04/16 completed Not Available Not Available Not Available amoxicillin 500 mg tablet TAKE 1 TABLET BY MOUTH TWICE A DAY WITH FOOD UNTIL GONE 12/01 completed Not Available Not Available Not Available ondansetron 8 mg disintegrat ing tablet 04/16 completed Not Available Not Available Not Available docusate sodium 100 mg capsule TAKE 1 CAPSULE BY MOUTH TWICE A DAY NEEDED 01/01 completed Not Available Not Available Not Available ergocalcife rol (vitamin D2) 1,250 mcg (50,000 unit) capsule Take 1 capsule every week by oral route. 06/19 completed Not Available Not Available Not Available ibuprofen 600 mg tablet TAKE 1 TABLET BY MOUTH EVERY 6 HOURS NEEDED FOR PAIN 07/30 completed Not Available Not Available Not Available naproxen 500 mg tablet 04/16 completed Not Available Not Available Not Available amoxicillin 875 mg-potassiu m clavulanate 125 mg tablet TAKE 1 TABLET BY MOUTH 2 TIMES DAILY FOR 14 DAYS. 01/01 completed Not Available Not Available Not Available azithromyci n 1 gram oral packet Take 1 g by oral route as directed. 04/16 completed Not Available Not Available Not Available amoxicillin 500 mg-potassiu m clavulanate 125 mg tablet 04/16 completed Not Available Not Available Not Available Ventolin HFA 90 mcg/actuati on aerosol inhaler Inhale 2 puffs every 4 hours by inhalatio n route as needed. 12/01 completed Not Available Not Available Not Available azithromyci n 500 mg tablet TAKE 2 TABLETS BY MOUTH FOR 1 DOSE 01/01 completed Not Available Not Available Not Available Sprintec (28) 0.25 mg-35 mcg tablet Take 1 tablet every day by oral route. 07/30 completed Not Available Not Available Not Available cyclobenzap rine 5 mg tablet 04/16 completed Not Available Not Available Not Available chlorhexidi ne gluconate 0.12 % mouthwash SWISH AND SPIT 15MLS BY MOUTH TWICE DAILY FOR 30 SECONDS AND SPIT OUT 12/01 completed Not Available Not Available Not Available 07/14 completed Not Available Not Available Not Available Nexplanon 68 mg subdermal implant Inject 1 implant as needed by subcutane ous route as directed. 12/01 completed 2015 Not Available Not Available Not Available Vitals Date Recorded Body height Body mass index (BMI) Systolic blood pressure Diastolic blood pressure Provider Name and Address Organization Details Last Updated DateTime 12/01/2021 167.64 cm 21.8 kg/m2 114 mm[Hg] 66 mm[Hg] Trista Romero MA [facility] 12/01/2021 12:03:44 Date Recorded Body weight Provider Name an d Address Organization Details Last Updated DateTime 12/01/[phone] Vicente Rossi Attn: Accounting,[address] [place], [address], [facility] 12/13/2021 16:40:58 Date Recorded Body height Body mass index (BMI) Systolic blood pressure Diastolic blood pressure Provider Name and Address Organization Details Last Updated DateTime 01/30/2022 167.64 cm 24.3 kg/m2 118 mm[Hg] 62 mm[Hg] Carola Honeycutt MA [facility] 01/30/2022 11:45:09 Date Recorded Body weight Provider Name an d Address Organization Details Last Updated DateTime 01/30/[id number] Vicente Rossi Attn: Accounting,[address] [place], [address], [facility] 01/30/2022 11:56:54 Date Recorded Body height Body mass index (BMI) Body weight Systolic blood pressure Diastolic blood pressure Provider Name and Address Organization Details Last Updated DateTime 01/01/2023 167.64 cm 28.1 kg/m2 02075.5 g 112 mm[Hg] 74 mm[Hg] Carola Honeycutt MA [facility] 3 14:38:38 Date Recorded Body height Body mass index (BMI) Heart rate Systolic blood pressure Diastolic blood pressure Provider Name and Address Organization Details Last Updated DateTime 07/31/2023 167.64 cm 27.1 kg/m2 85 /min 110 mm[Hg] 69 mm[Hg] Trista Romero MA [facility] 4 11:31:03 Date Recorded Body weight Provider Name an d Address Organization Details Last Updated DateTime 07/31/2023 46847.05235 g Vicente Miles Attn: Accounting,[address] [facility], [place], [address], [facility] 07/31/2023 13:49:19 Date Recorded Body height Body mass index (BMI) Body weight Heart rate Systolic blood pressure Diastolic blood pressure Provider Name and Address Organization Details Last Updated DateTime 5 167.64 cm 26 kg/m2 41779.8 g 65 /min 106 mm[Hg] 65 mm[Hg] Keara Garcia [facility] 5 15:37:50 Social History Question Answer Notes LastModified by Organizat ion Details LastModified Time Tobacco Smoking Status Current Every Day Smoker one a day - black and milds x 1 yr Keara Tanancelmo Garcia [facility], [facility] 07/14/2024 15:33:02 Do You Have An Advance Directive? No Information not available 01/30/2022 What Is Your Level Of Alcohol Consumption? Occasional Information not available 01/30/2022 How Many Years Have You Consumed Alcohol? 2 Information not available 01/30/2022 Is Blood Transfusion Acceptable In An Emergency? Yes Information not available 01/01/2023 What Is Your Level Of Caffeine Consumption? Heavy Information not available 01/30/2022 In The 14 Days Before Symptom Onset, Have You Had Close Contact With A Laboratory-confir med COVID-19 While That Case Was Ill? No Information not available 01/30/2022 In The 14 Days Before Symptom Onset, Have You Had Close Contact With A Person Who Is Under Investigation For COVID-19 While That Person Was Ill? No Information not available 01/30/2022 Have You Been To An Area Known To Be High Risk For COVID-19? No Information not available 01/30/2022 Are You Currently Employed? No Information not available 01/30/2022 What Type Of Diet Are You Following? REGULAR Information not available 01/30/2022 Do You Or Have You Ever Used E-cigarettes Or Vape? Current User Of Electronic Cigarettes Information not available 07/14/2024 What Is The Highest Grade Or Level Of School You Have Completed Or The Highest Degree You Have Received? [id number] Information not available 01/30/2022 Have There Been Any Changes To Your Family Or Social Situation? No Information no t available 01/30/2022 What Was The Date Of Your Most Recent Tobacco Screening? 07/14/2024 Information not available 07/14/2024 How Many Children Do You Have? 0 Information not available 01/30/2022 Do You Have Any Pets? No Information not available 01/30/2022 Do You Use Protection During Sex? Usually Information not available 01/30/2022 What Is Your Relationship Status? Single Information not available 01/30/2022 Do You Use Your Seat Belt Or Car Seat Routinely? Yes Information not available 01/01/2023 Are You Sexually Active? Yes Information not available 01/30/2022 Do You Have Smoke And Carbon Monoxide Detectors In Your Home? Yes Information not available 01/30/2022 At What Age Did You Start Smoking Tobacco? 17 Information not available 01/30/2022 Are You Passively Exposed To Smoke? Yes Information no t available 01/30/2022 Do You Feel Stressed (tense, Restless, Nervous, Or Anxious, Or Unable To Sleep At Night)? [id number] Information not available 01/30/2022 Do You Use Any Illicit Or Recreational Drugs? No Information not available 01/30/2022 Do You Use Sunscreen Routinely? No Information not available 01/30/2022 Has Tobacco Cessation Counseling Been Provided? Yes Information not available 01/30/2022 On What Date Was Tobacco Cessation Counseling Provided? 07/14/2024 [email or web address] Information not available 07/14/2024 Do You Or Have You Ever Used Any Other Forms Of Tobacco Or Nicotine? Yes Information not available 07/14/2024 Sex: Female Functional Status Question Answer Note LastModified by Organizat ion Details LastModified Time What is your exercise level? Occasional Information not available 01/30/2022 Mental Status None recorded. Family History Relationship Description Onset Age of this Age Resolved Age Notes LastModified by Organization Details LastModified Time Mother Hypertensive disorder [email or web address] Not available 2015 11:26:15 Mother Bipolar disorder [email or web address] Not available 2016 14:28:15 Mother Schizophreni a [email or web address] Not available 2016 14:28:32 Father Asthma [email or web address] Not available 1 06/13/2016 14:27:48 Father Bipolar disorder [email or web address] Not available 2016 14:28:15 Medical History Condition Response Other N High Blood Pressure N Depression N Blood Clots N Headaches/Migraines N Anxiety Disorder N Muscle, Joint, or Bone Problems N Infertility N Polyps N Acid Reflux (GERD) N Cancer N Kidney or Bladder Problems N Acne N Eating Disorder N Asthma N Hepatitis N Breast Cancer N Lung Disease N Breast Problem N Anesthesia Complications N Endometriosis N High Cholesterol N Liver Disease N Thyroid Problems N GI Problems N Anemia N Ovarian Cancer N Diabetes N Blood Transfusions N Seizures/Epilepsy N Abuse/Domestic Violence N Heart Disease N Pre-Eclampsia N Osteoporosis N Gynecological History Statement/Question Response Flow Moderate STIs/STDs Y HPV Vaccine Y Duration of Flow (days) 5 Age at Menarche 11 Current Control Method None Age at First Child 22 Sexually Active? Y Menses Monthly Y Date of Last Pap Smear 07/14/2024 Sexual Problems? N LMP Approximate Desired Control Method BCPs Obstetrics History GPAL:G 3 P 1 0 1 1 Type Value Full Term 1 Induced 0 Spontaneous 1 Living 1 Total 3 Immunizations Vaccine Type Date Status Note Provider Nam e and Address Organization Details Recorded Time Meningococcal MCV4O 7 completed Not Available [facility] 06/07/2019 02:47:20 HPV, quadrivalent 4 completed Dorene Shar[place], [place] [facility] 01/19/2015 17:10:09 Tdap 3 completed Dorene Shar[place] [facility] 01/19/2015 17:10:09 Hep B, adolescent or pediatric 6 completed Dorene Shar[place] [facility] 01/19/2015 17:10:09 DTaP, unspecified formulation 7 completed Dorene Shar[place] [facility] 01/19/2015 17:10:09 IPV 6 completed Dorene Shar[place] [facility] 01/19/2015 17:10:09 DTaP, unspecified formulation 6 completed [place]orene Shar[place] [facility] 01/19/2015 17:10:09 IPV 7 [place]IE [place] [facility] 01/19/2015 17:10:09 DTaP, unspecified formulation 5 completed [place]orene Shar[place] [facility] 01/19/2015 17:10:09 IPV 5 [place] [facility] 01/19/2015 17:10:09 MMR 5 completed Dorene Shar[place] [facility] 01/19/2015 17:10:09 Hep B, adolescent or pediatric 5 [place] [facility] 01/19/2015 17:10:09 DTaP, unspecified formulation 7 completed [place]orene [place] [facility] 01/19/2015 17:10:09 HPV, quadrivalent 9 [place] [facility] 01/19/2015 17:10:09 influenza, unspecified formulation 3 [place] [facility] 01/19/2015 17:10:09 MMR 6 completed Dorene [place] [facility] 01/19/2015 17:10:09 meningococcal ACWY, unspecified formulation 3 completed MARGIE Bonilla, [facility] 01/19/2015 17:10:09 Td (adult), 2 Lf tetanus toxoid, preservative free, adsorbed 7 completed MARGIE Bonilla, [facility] 01/19/2015 17:10:09 Hep B, adolescent or pediatric 7 completed MARGIE Bonilla, [facility] 01/19/2015 17:10:09 Hep A, ped/adol, 2 dose 5 completed MARGIE Bonilla, [facility] 01/19/2015 17:10:09 HPV, quadrivalent 1 completed MARGIE Bonilla, [facility] 01/19/2015 17:10:09 Hep A, ped/adol, 2 dose 7 completed MARGIE Bonilla, [facility] 01/19/2015 17:10:09 Past Encounters Encounter ID Performer Location Encounter Start Date Encounter Closed Date Diagnosis/Indication Diagnosis SNOMED-CT Code Diagnosis ICD10 Code Diagnosis Note [id number] [place] [address] [address] [facility] [address] [place] [address] 05/26/2015 15:59:13 05/26/2015 18:41:15 Venereal disease screening 027633166 Z11.3 [id number] MD Uriel Shaw ([place] [address]) [address] [facility] [address] [place] [address] 06/10/2015 11:11:16 06/11/2015 09:23:40 Contraception care management 379502970 Z30.9 Candidiasis of vagina 72 714147 B37.3 [id number] MD Uriel Shaw ([place] [address]) [address] [facility] [place] [address] 07/08/2015 10:21:00 07/08/2015 11:05:55 Contraception care management 616538870 Z30.49 [id number] [place] [address] [address] [facility] [address] [place] [address] 02/02/2016 15:01:19 02/06/2016 01:02:01 Vaginal discharge 315038960 N89.8 [id number] MD Uriel Shaw ([place] [address]) [address] [facility] [place] [address] 02/10/2016 15:35:59 02/14/2016 09:10:50 Infection by Trichomonas 99156305 A59.9 [id number] MD [facility] (Peds) [address] [place] [address] 02/24/2016 10:57:25 02/24/2016 12:54:45 Concussion injury of brain 557244306 S06.0X0D stable, may have VEGA for 2 months Crushing i njury of multiple sites 852333611 T07 stable. [id number] MD Uriel Shaw ([place] [address]) [address] [facility] [place] [address] 03/09/2016 16:14:48 03/12/2016 18:20:37 Venereal disease screening 523243647 Z11.3 [id number] MD Uriel Shaw ([place] [address]) [address] [facility] [place] [address] 03/29/2016 09:50:46 03/29/2016 10:13:25 Venereal disease screening 389195934 Z11.3 Infection by Trichomonas 43745506 A59.9 Trichomonal vaginitis 27 9152037 A59.00 [id number] MD Uriel Shaw ([place] [address]) [address] [facility] [place] [address] 09/13/2016 15:34:42 09/13/2016 17:01:30 Vaginal discharge 626793780 N89.8 Urinary tr act infectious disease 06505743 N39.0 [id number] MD [place] [address] [address] [facility] [place] [address] 10/10/2016 15:31:55 10/10/2016 17:28:47 Gonorrhea 37897669 A54.9 Venereal d isease screening 558401729 Z11.3 High risk sexual behavior 282678601 Z72.51 [id number] MD Uriel Shaw ([place] [address]) [address] [facility] [place] [address] 11/28/2016 15:01:55 11/30/2016 08:19:47 Venereal disease screening 470376483 Z11.3 Urinary tr act infectious disease 55770725 N39.0 [id number] MARGIE Lira ([place] [address]) [address] [facility] [address] [place] [address] 12/01/2016 17:24:22 12/01/2016 23:16:32 Gonorrhea 89586772 A54.9 [id number] MD Uriel Shaw ([place] [address]) [address] [facility] [address] [place] [address] 01/02/2017 15:20:56 01/02/2017 15:41:59 Venereal disease screening 381416781 Z11.3 [id number] Viviane Osito Uriel ([facility]) [address] [place] [address] 04/13/2017 14:02:09 04/16/2017 14:07:13 Well child visit 187862814 Z00.129 Meningococ jennie today. Had Varicella at age of 5-6 yo. Mood disorder 19487925 F 38 PHQ 9 = 2. Lack of motivation . Basic eval. Disputes in family. Lives with friend. Okay with counseling . Dyspnea on exertion 6084 5006 R06.09 PFT for eval. Trial of inhaler. RTC in 1mo. Spasm of back muscles 20 4542341 M62.830 Exam unremarkab le. Had evaluation at [facility] - will have nursing obtain record and go from there. Continue NSAIDs PRN. [id number] MD Uriel Shaw ([place] [address]) [address] [facility] [address] [place] [address] 04/18/2017 15:41:35 04/19/2017 18:08:32 Venereal disease screening 643754116 Z11.3 [id number] MD Uriel Shaw ([place] [address]) [address] [facility] [place] [address] 06/19/2017 15:34:40 06/19/2017 19:18:45 At increased risk of urinary tract infection 542692371 Z91.89 Family [facility] surveillance 069469013 Z30.09 [id number] MD Uriel Shaw 14 OB [address] [facility] [address] [place] [address] 12/27/2017 10:25:19 12/27/2017 16:55:33 Fatigue 58739413 R53.83 - CBC was ordered to rule out anemia. Contracept ion care management 915844270 Z30.49 Patient was reassured that irregular menstrual bleeding was a common side effect of Nexplanon. [id number] MD Uriel Shaw 14 OB [address] [facility] [place] [address] 02/05/2018 14:17:30 02/05/2018 20:57:16 Vaginal discharge 952246551 N89.8 Venereal d isease screening 486099046 Z11.3 Contracept ion care management 447101059 Z30.49 Nexplanon device was removed as per patient request. Patient does not want an alternativ e form of control. [id number] MD Uriel Shaw 14 OB [address] [facility] [place] [address] 02/13/2018 13:55:01 02/13/2018 14:45:35 Chlamydial infection 144986892 A74.9 Gonorrhea 75120858 A54.9 Herpes simplex 14856717 B00.9 [id number] MD Uriel Shaw 14 OB [address] [facility] [place] [address] 05/08/2018 11:53:56 05/09/2018 09:49:08 Pain in pelvis 06449260 R10.2 Venereal d isease screening 343829934 Z11.3 Herpes simplex 52320294 B00.9 [id number] MD Uriel Miles [address] [place] [address] [place] [address] 07/22/2018 10:29:52 07/22/2018 12:48:05 Venereal disease screening 955281051 Z11.3 Bacterial vaginosis 4197 18740 N76.0 [id number] MD Uriel Miles 14 OB [address] [facility] [place] [address] 06/16/2019 12:01:46 06/17/2019 09:25:40 Routine gynecologic examination done 2491391944 9101 Z01.419 CBE and pelvic exam performed. Venereal d isease screening 331417973 Z11.3 Candidiasis of vagina 72 018248 B37.3 Contracept ion care management 052933502 Z30.9 [id number] MD Uriel Miles 14 OB [address] [facility] [place] [address] 12/01/2021 11:34:34 12/02/2021 08:28:57 Missed period 84987536 N92.5 [id number] MD Uriel Miles 14 OB [address] [facility] [place] [address] 01/30/2022 11:26:17 01/31/2022 08:44:14 Routine care 744859192 Z34.92 Vaginal discharge 073880 006 N89.8 Intolerant of cold 07414 000 R68.89 Depression screening 171 282725 Z13.31 [id number] MD Uriel Miles 14 OB [address] [facility] [place] [address] 01/01/2023 14:12:51 01/20/2023 10:02:03 Gynecologic examination 97181239 Z01.419 --CBE and pap smear performed Venereal d isease screening 834495225 Z11.3 At [facility] risk of urinary tract infection 404285397 Z91.89 Menorrhagia 532092403 N9 2.0 [id number] MD Uriel Miles 14 OB [address] [facility] [place] [address] 07/31/2023 11:12:18 08/01/2023 10:24:38 Routine care 291303996 Z34.92 Deliveries by 728659248 O82 --Prior x1 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 --Start suppresion therapy at 35-36 weeks Maternal o besity complicating , childbirth and the puerperium, antepartum 0745155485 07 O99.730 [id number] MD Uriel Miles 14 OB [address] [facility] [place] [address] 07/14/2024 15:08:49 07/15/2024 14:14:51 Gynecologic examination 75846739 Z01.419 --CBE and pap smear performed High risk sexual behavior 861856606 Z72.51 Contracept ion care management 460004049 Z30.9 --Patient desires Nexplanon, will RTC for insertion once she is on her period Overweight 361449850 E66 .3 Smoker 88342238 F17.200 Pain in pelvis 42263672 R10.2 Health Concerns Section Related Observation LastModified by Organization Detai ls LastModified Time None Recorded Concern Status LastModified by Organization Details LastModified Time None Recorded Advance Directives Directive N: Payers Encounter Date Sequence Insurance Name Policy Number Policy Mcdonnell Covered Member ID Mcdonnell Member ID Guarantor Name 12/01/2021 1 [employer] [place] 2020 (MEDICAID REPLACEMENT - HMO) Cuong Rodriguez [id number] Rosalina Jennifer 01/30/2022 1 [employer] [place]AC[place] - [place]MO) Cuong Rodriguez [id number] Rosalina Jennifer 01/01/2023 1 [employer] [place] - [place]MO) Cuong Rodriguez [id number] Rosalina Jennifer 07/31/2023 1 [employer] [place] - [place]MO) Cuong Rodriguez [id number] Rosalina Jennifer 07/14/2024 1 [employer] [place] - [place]MO) Cuong Rodriguez [id number] Rosalina Jennifer Notes Date Note Type Note Provider Name and Address Organization Details Recorded Time 12/01/2021 text/html Patient presents for initial visit however, the patients' urine test is negative. She denies any vaginal bleeding, cramping or passage of tissue. Yariel Bird MD Attn: Accounting,[address] [place], [address], [place] [facility] 12/01/2021 12:36:09 01/30/2022 text/html See divya w sheet. Yariel Bird MD Attn: Accounting[address] [place], [address], [facility] 01/30/2022 17:13:53 01/01/2023 text/html Annual GYNReport ed bypatient.Menstrua l cycle:Menorrhagia Urinary symptoms:No hematuria; No incontinence Vulva:No genital lesion Vagina:Normal vaginal discharge Breast:No breast pain; No breast lump; No nipple discharge Current Contraception:Requ ests testing for sexually transmitted infections Sexual complaints:No sexual complaints; No pain during intercourse; Normal libido Menopausal Symptoms:No menopausal symptoms; Normal vaginal lubrication Psychological symptoms:No depression; No anxiety; No PMDD Yariel Bird MD Attn: Accounting,[address] [place], [address], [facility] 01/19/2023 18:19:07 07/31/2023 text/html See divya w sheet. Yariel Bird MD Attn: Accounting[address] [place], [address], [facility] 07/31/2023 13:51:33 07/14/2024 text/html Annual GYNReport ed bypatient.Menstrua l cycle:Normal menses; Patient admits to pelvic pain and would like to know if she has ovarian cysts. She states that she only has pain during her periods and denies pain with sex, urination or deification. Urinary symptoms:No hematuria; No incontinence Vulva:No genital lesion Vagina:Normal vaginal discharge Breast:No breast pain; No breast lump; No nipple discharge Current Contraception:Requ ests testing for sexually transmitted infections Sexual complaints:No sexual complaints; No pain during intercourse; Normal libido Menopausal Symptoms:No menopausal symptoms; Normal vaginal lubrication Psychological symptoms:No depression; No anxiety; No PMDD Yariel Bird MD Attn: Accounting,[address] [place], [address], [facility] 07/14/2024 16:25:31 OBGyn Episode Ob Episode Information Episode Created Date Number of Fetuses Patient Bloodtype Patient rh Status Prepregnancy Weight lbs Domestic Partner Domestic Partner Phone Father Name Laundry Aid Status 07/26/19 24 1 B Positive CLOSED Fetus Data First Name Last Name Admitted to NICU Weight (g) Sex Living Outcome Pediatric Complications Fetus ID Race Codes Race Delivery Type , Induced [id number] Problems Problem Notes bottle boy cir yes history c section no cat Problem Name Start Date End Date Resolution Snomed Code Not e Marijuana user [id number] William Calculation Initial William Date Initial Exam Date Initial Exam Provider Initial Ultrasound Date Last Menstrual Period Date Ultra Sound Weeks Gestation [facility] 0 Eighteen To Twenty Week William Update Ultra Sound Date Fundal Height At Umbil Quickening Date Ultra Sound Latest Weeks Gestation Final William Confirmed By Final William Confirmed Date Final William Date Ultra Sound Latest Days Gestation 0 01/29/20 24 0 Pre-paradise Flowsheet Flowsheet Date 07/31/2023 Singh Score Blood Edema Fundus Height Fundus Units Glucose Ketones Leukocytes Nitrite Labor Signs Protein Cervic Dilation Cervic Effacement Cervic Station Type Weight in lbs Pre/Post Dialysis Refused With clothes 168.612502437978 BP Diastolic BP Location Tested BP Systolic BP Type 69 110 sitting Fetus Heart Rate Present Fetus Movement Comments Menstrual History Last Menstrual Date Menses Monthly On Bcp Conception Prior Menses Frequency Hcg Plus Date Menarche Onset Age 1204/24/2023 true false 12 Genetic Screening And Infection History Question Response Note Patient's Age Will Be 35 Yea rs Or Older At Estimated Date of Delivery false Thalassemia (Upper Sorbian, Georgian, Mediterranean, Or Background): MCV < 80 false Neural Tube Defect (Meningom yelocele, Spina Bifida, Or Anencephaly) false Congenital Heart Defect false Down Syndrome true pt 1 yr old Fadi-Sachs (eg, Confucianism, Cajun, Slovak-Tribune) f alse Vega Disease false Sickle Cell Disease Or Trait () false Hemophilia Or Other Blood Disorders false Muscular Dystrophy false Cystic Fibrosis false Sigel's Chorea false Mental Retardation/Autism false If Yes, Was Person Tested For Fragile X? false Other Inherited Genetic Or Chromosomal Disorder false Maternal Metabolic Disorder (eg, Type 1 Diabetes , PKU) false Patient Or Baby's Father Had A Child With Defects Not Listed Above false Recurrent Loss, Or A Stillbirth false Medications (including Suppl ements, Vitamins, Herbs, OTC Drugs), Illicit/Recreational Drugs, Alcohol true pnv If Yes, Agent(s) And Strength/Dosage false Any Other Genetic History false Live With Someone With TB Or Exposed To TB false Patient Or Partner Has History Of Genital Herpes true pt Rash Or Viral Illness Since Last Menstrual Perio d false History Of STD, Gonorrhea, Chlamydia, HPV, Syphi lis false Other Infection History false History of HIV false History of Hepatitis false Prior GBS-infected child false Delivery Information Delivery Date Delivery Type Labor Anesthesia Weeks Gestation Incision Type Labor Labor Length Hrs Delivered By Post Complications Tubal Sterilization Discharge Date Comments 4 18.2 EAB Discharge Information Feeding Method Contraceptive Method Maternal HG B and HCT Levels Ob Episode Information Episode Created Date Number of Fetuses Patient Bloodtype Patient rh Status Prepregnancy Weight lbs Domestic Partner Domestic Partner Phone Father Name Laundry Aid Status 11/19/19 1 B Positive CLOSED Fetus Data First Name Last Name Admitted to NICU Weight (g) Sex Living Outcome Pediatric Complications Fetus ID Race Codes Race Delivery Type false 3410.46 [id number] F Full Term [id number] [id number] Afric an Ameri can Problems Problem Notes Problem Name Start Date End Date Resolution Snomed Code Not e Herpesvirus infection 47016020 Chlamydial infection 654902423 Genetic finding detected 966593308 NIPT positive f or downs syndrome Varicella non-immune 871313727 William Calculation Initial William Date Initial Exam Date Initial Exam Provider Initial Ultrasound Date Last Menstrual Period Date Ultra Sound Weeks Gestation 06/16/2022 11/18/2021 [place] [id number] 12/09/2021 09/09/2021 13 Eighteen To Twenty Week William Update Ultra Sound Date Fundal Height At Umbil Quickening Date Ultra Sound Latest Weeks Gestation Final William Confirmed By Final William Confirmed Date Final William Date Ultra Sound Latest Days Gestation 02/17/20 22 21 [place] [id number] 12/13/2021 06/16/19 23 4 Pre- Flowsheet Flowsheet Date 12/01/2021 Singh Score Blood Edema Fundus Height Fundus Units Glucose Ketones Leukocytes Nitrite Labor Signs Protein Cervic Dilation Cervic Effacement Cervic Station Type Weight in lbs Pre/Post Dialysis Refused With clothes 135.78428863774 BP Diastolic BP Location Tested BP Systolic BP Type 66 114 sitting Fetus Heart Rate Present Fetus Movement Comments Flowsheet Date 01/30/2022 Singh Score Blood Edema Fundus Height Fundus Units Glucose Ketones Leukocytes Nitrite Labor Signs Protein Cervic Dilation Cervic Effacement Cervic Station none none Type Weight in lbs Pre/Post Dialysis Refused With clothes 150.66949450823 BP Diastolic BP Location Tested BP Systolic BP Type 62 118 sitting Fetus Heart Rate Present Fetus Movement Comments Patient presents for initial visit. CBE and pap smear performed. Will obtain labs and perform nutritional counseling. NIPT and AFP today. Patient complains that she is always cold, will test CBC, TSH and T4. DMS at next visit. RTC in 4 weeks. Menstrual History Last Menstrual Date Menses Monthly On Bcp Conception Prior Menses Frequency Hcg Plus Date Menarche Onset Age 0409/09/2021 Delivery Information Delivery Date Delivery Type Labor Anesthesia Weeks Gestation Incision Type Labor Labor Length Hrs Delivered By Post Complications Tubal Sterilization Discharge Date Comments 3 Mat [facility] 38.6 Low Transvers e false pura Yeung None false 06/11/2022 Discharge Information Feeding Method Contraceptive Method Maternal HG B and HCT Levels Bottle 8.9/27.5 Ob Episode Information Episode Created Date Number of Fetuses Patient Bloodtype Patient rh Status Prepregnancy Weight lbs Domestic Partner Domestic Partner Phone Father Name Laundry Aid Status 12/02/19 22 1 CLOSED Fetus Data First Name Last Name Admitted to NICU Weight (g) Sex Living Outcome Pediatric Complications Fetus ID Race Codes Race Delivery Type , Spontane ous [id number] William Calculation Initial William Date Initial Exam Date Initial Exam Provider Initial Ultrasound Date Last Menstrual Period Date Ultra Sound Weeks Gestation 0 Eighteen To Twenty Week William Update Ultra Sound Date Fundal Height At Umbil Quickening Date Ultra Sound Latest Weeks Gestation Final William Confirmed By Final William Confirmed Date Final William Date Ultra Sound Latest Days Gestation 0 0 Menstrual History Last Menstrual Date Menses Monthly On Bcp Conception Prior Menses Frequency Hcg Plus Date Menarche Onset Age Delivery Information Delivery Date Delivery Type Labor Anesthesia Weeks Gestation Incision Type Labor Labor Length Hrs Delivered By Post Complications Tubal Sterilization Discharge Date Comments 1 Discharge Information Feeding Method Contraceptive Method Maternal HG B and HCT Levels
[2024-07-25 08:45] LABS: EDSTREPNEGPOS1 Positive (Negative)
--- NOTE | 2024-07-25 09:07 | ED.URI ---
HPI - URI/Sore Throat General Chief Complaint: Upper Respiratory Infection Stated Complaint: Sore Throat/Ear Pain Time Seen by Provider: 07/25/24 08:35 Source: patient Mode of arrival: ambulatory Limitations: no limitations History of Present Illness HPI Narrative: 24 yo F presents with c/o sore throat, throat swollen for 2 days. Afebrile. Reports white spots to throat. All systems reviewed and negative except as noted above. Related Data Allergies Allergy/AdvReac Type Severity Reaction Status Date / Time No Known Allergies Allergy Verified 07/25/24 08:36 Review of Systems Review of Systems: CONSTITUTIONAL: Denies fever, chills, or sweats. EYES: Denies visual changes, redness, or discharge. ENT: Denies rhinorrhea, congestion . Reports sore throat . Denies otalgia. CARDIOVASCULAR: Denies chest pain, palpitations, or edema. RESPIRATORY: Denies cough or dyspnea. GASTROINTESTINAL: Denies abdominal pain, nausea, vomiting, or diarrhea. GENITOURINARY: Denies dysuria or hematuria. SKIN: Denies rash or itching. MUSCULOSKELETAL: Denies back pain, joint pain, or myalgia. NEUROLOGIC: Denies headache, numbness, or weakness. PSYCHIATRIC: Denies anxiety or depression. All other systems reviewed are negative, except as documented in HPI. PMFSH Comments At time of signature, agree with nursing past medical, surgical, social and family history. There is no relevant family history pertinent to the presenting complaint. Exam Narrative: GENERAL: This is a well-nourished, well-developed patient, in no apparent distress. HEAD: normocephalic, atraumatic. EYES: PERRL. Sclera clear/white. Vision is grossly intact. EARS: External ears normal, auditory canals clear and without drainage, TMs normal without perforation. Hearing grossly intact. NOSE: External nose normal with no obvious nasal discharge, nares without redness, no rhinorrhea. THROAT: Mucous membranes moist, erythematous, tonsils 3+ bilaterally with exudates NECK: Neck supple, non-tender without lymphadenopathy, masses or thyromegaly. CARDIOVASCULAR: Regular rate and rhythm without murmurs, gallops, or rubs. RESPIRATORY: Clear to auscultation. Breath sounds equal bilaterally. No wheezes, rales, or rhonchi. SKIN: warm, Dry, intact with no suspicious lesions or rash, good texture and turgor. NEURO: awake, alert, and oriented to person, place and time. There were no obvious focal neurologic abnormalities. EXTREMITIES: No joint tenderness, effusion, or edema noted. Course Course Level of Care: Express Care Visit Vital Signs Vital signs: Vital Signs Temperature 36.7 C 07/25/24 08:30 Pulse Rate 111 H 07/25/24 08:30 Respiratory Rate 20 07/25/24 08:30 Blood Pressure 125/76 07/25/24 08:30 Pulse Oximetry 99 07/25/24 08:30 Oxygen Delivery Room Air 07/25/24 08:30 Temperature 36.7 C 07/25/24 08:30 Pulse Rate 111 H 07/25/24 08:30 Respiratory Rate 20 07/25/24 08:30 Blood Pressure 125/76 07/25/24 08:30 Pulse Oximetry 99 07/25/24 08:30 Oxygen Delivery Room Air 07/25/24 08:30 reviewed MDM - URI/Sore Throat MDM Narrative Medical decision making narrative: positive rapid strep. Treat with amoxicillin, prednisone due to tonsil swelling. Patient is well-appearing, nontoxic. No difficulty swallowing. Please be advised this is a medical document. It is intended for pmai-wq-rbty communication. It is written in medical language and may contain unfamiliar abbreviations or verbiage. Medical documents are intended to carry relevant information, facts as evident, and the clinical opinion of the practitioner at the time of the encounter. This report may have been done utilizing a voice recognition system. Attempts have been made to correct errors. However, there may be uncorrected grammatical, spelling, and recognition errors present. The file time of this note does not necessarily represent the time of service. Differential Diagnosis Differential diagnosis: Likely upper respiratory infection, sinusitis, viral infection and pharyngitis Lab Data Labs: Lab Results 07/25/24 Range/Units 08:43 POC Grp A Strep Screen Positive (Negative) Discharge Plan Discharge Clinical Impression: Strep throat Patient Disposition: Home, Self-Care Condition: Stable Instructions: Antibiotic Form, Strep Throat (ED) Additional Instructions: Your strep test was positive today. Take antibiotic as prescribed until gone. Change toothbrush after taking antibiotic for 24 hours. Drink at least 64 ounces of water a day. See your doctor if symptoms not improving. Patient Language: Luxembourger Prescriptions: New prednisone 20 mg tablet 40 mg PO DAILY 5 Days Qty: 10 0RF amoxicillin 500 mg tablet 500 mg PO Q12H 10 Days Qty: 20 0RF ibuprofen 600 mg tablet 600 mg PO Q6H PRN (Reason: pain) Qty: 30 0RF Follow-up/Referrals: PHYSICIAN,DISTRIBUTION LEAD [Primary Care Provider] - Time of Disposition: 08:46
== END 2024-07-25 08:54 | disposition home or self-care (01) ==
PROVIDERS: Emergency Provider Nurse Practitioner Family
DX: J02.0 Streptococcal pharyngitis (principal)
CPT/HCPCS: 87880; 99203; G0463

== ENCOUNTER 2025-04-19 10:52 | Emergency (ER) | payer OTHER, SELFPAY ==
--- OUTSIDE RECORDS SUMMARY | 2011-03-30 09:40 | XMS_ITS | Continuity of Care Document ---
Author Organization [facility] Address [address] [facility] [address] [place] [address] Phone Care Team Providers Care Stem Assembler Name Role Phone Nurse, [facility] Unavailable Unavailable Procedures Procedure Date PULSE OXIMETRY Advance Directives Directive Yes / No Effective Date File Name No Information Encounters Encounter Description Practice Location Reason(s) For Visit Diagnoses Date Provider Providers Copied on Encounter [facility], [address], [id number], tel:[phone] Default Location No Information 1 Nurse [facility]. [address] [place], [address], [place]. tel:[phone] [facility], [address], [id number], tel:[phone] Noteworthy Legacy Data Varicella without mention of complicationRou rosalina or child health checkShortness of breathScabiesPa lpitationsRash and other nonspecific skin eruption 1 No Information Family History Family Member Type Diagnosis Age At Onset No Information Immunizations Vaccine Date Status Comments GARDASIL, single dose (vial) administered Source: Source Unspecified DTAP administered Source: Source Unspecified HEP A administered Source: Source Unspecified HEP B administered Source: Source Unspecified IPV administered Source: Source Unspecified DTAP administered Source: Source Unspecified MMR administered Source: Source Unspecified HEP B administered Source: Source Unspecified IPV administered Source: Source Unspecified DTAP administered Source: Source Unspecified IPV administered Source: Source Unspecified DTAP administered Source: Source Unspecified HEP B administered Source: Source Unspecified HEP A administered Source: Source Unspecified MMR administered Source: Source Unspecified Payers Payer name Insurance type Covered libertarian ID Authoriza tion(s) No Information Social History Type Description Quantity Date Captured Comments Sex Female Smoking Status No Information Chief Complaint And Reason For Visit No Information Reason For Referral Reason For Referral No Information History Of Present Illness Encounter Date Complaint History Of Prese nt Illness No Information Functional Status Date Functional Assessmen t No Information Instructions Date Instruction Additional Infor mation No Information Assessments Type Assessment Date No Information Patient Care Teams Name Effective Dates (start - stop) Status Members No Information
--- OUTSIDE RECORDS SUMMARY | 2011-03-30 09:40 | XMS_ITS | Continuity of Care Document ---
Author Organization [facility] Address [address] [place] [address] Phone Care Team Providers Care Bank Appraiser Name Role Phone Nurse, [facility] Unavailable Unavailable Procedures Procedure Date PULSE OXIMETRY Advance Directives Directive Yes / No Effective Date File Name No Information Encounters Encounter Description Practice Location Reason(s) For Visit Diagnoses Date Provider Providers Copied on Encounter [facility], [address], [id number], tel:[phone] Default Location No Information 1 Nurse [facility]. [address] [place], [address], [place]. tel:[phone] [facility], [address], [id number], tel:[phone] Noteworthy Legacy Data Varicella without mention of [...] Unspecified Payers Payer name Insurance type Covered republican ID Authoriza tion(s) No Information Social History [...]
--- OUTSIDE RECORDS SUMMARY | 2025-04-19 10:53 | XMS_ITS | Clinical Summary ---
Author Organization [facility] Address [address] [place] [id number] Care Team Providers Care Sap Technical Developer Name Role Phone None, Provider MD Primary [...] 1:49 PM CDT Height 167.6 cm (5' 6) 08/17/2023 1:49 PM CDT Body Mass Index [...] 04/30/2007, 10/17/2006, Additional history exists COVID-19 Vaccine (2024- season) 2025 Influenza Adult (#1) 2025 RSV Immunization or 60+ Years (1 - 1-dose 75+ series) 2074 Hepatitis B Vaccines Completed 10/17/2006, 10/18/2005, 03/01/2005 HPV Vaccines Completed 02/19/2014, 03/23, 01/01/2009 Meningococcal Vaccine Completed 04/13/2017, 013 Chlamydia Screening Females ages 16-24 Discontinued 04/17/2022 Hepatitis A Vaccines Aged Out No long er eligible based on patient's age to complete this topic Meningococcal B Vaccine Aged Out No l onger eligible based on patient's age to complete this topic Pneumococcal Vaccine: Pediatrics (0 to 5 Years) and At-Risk Patients (6 to 49 Years) Aged Out No longer eligible based on patient's age to complete this topic RSV Immunizations Under 20 Months Aged Out No longer eligible based on patient's age to complete this topic Procedures Procedure Name Priority Date/Time Associated Diagnosis Comments CHLAMYDIA GC RNA STAT 04/17/2022 2:50 PM CERTIFIED DIETARY MANAGER ([facility]) from Last 3 Months or Most Recently Relevant to Health Maintenance Results * CHLAMYDIA GC RNA (04/17/2022 2:50 PM CERTIFIED DIETARY MANAGER) SPEC DESCRIPTION VAGINAL SPECIMEN 04/17/2022 2:58 PM CERTIFIED DIETARY MANAGER [facility] CHLAMYDIA RNA TMA NEGATIVE NEGATIVE 022 12:32 PM CERTIFIED DIETARY MANAGER [facility] Comment:PERFORMED BY NUCLEIC ACID AMPLIFICATION N.GONORRHOEAE RNA TMA NEGATIVE NEGATIVE 04/18/2022 12:32 PM CERTIFIED DIETARY MANAGER [facility] Comment:PERFORMED BY NUCLEIC ACID AMPLIFICATION VAGINAL STRUCTURE / Unknown 04/17/2022 2:50 PM CERTIFIED DIETARY MANAGER Douglas Pelaez MD MICROBIOLOGY - GENERAL ORD ERABLES Final Result [facility] [address] [place] [address], [facility] [address] [place] [address], [place] [phone] from Last 3 Months or Most Recently Relevant to Health Maintenance [place] [address] [place] [address] MEDICAID Care Teams Sap Technical Developer Relationship Specialty Start Date End Date None, Provider, PCP - General UNKNOWN PHYSICIAN SPECIALTY 03/05/22
--- OUTSIDE RECORDS SUMMARY | 2025-04-19 10:53 | XMS_ITS | Clinical Summary ---
Author Organization [facility] Address [address] [place] [address] Care Team Providers Care Evp Global Product Leadership Name Role Phone Viviane Mcneill MD Unavailable Unknown, Notinfile Primary Care Provider Unavail able Allergies No known active allergies Medications vit [id number]-[id number]-d tee 27mg iron- 800 mcg-250 mg capsule [...] # Disposition: Follow up task sent to [facility] scheduling pool. Continue routine care. Pt plans d/c on POD#4 d/t baby not being cleared for discharge yet. #Yeast Infection: s/p 150mg PO Diflucan given in [facility] #BV Infection: Flagyl 500 mg BID ordered Breech presentation 06/01/2022 Overview (06/01/2022): Noted on 05/30 US and counseled Pt plans for primary C/S Assessment & Plan (06/01/2022 4:04 PM INFORMATION OPERATOR): Counseled on risks of C/S including increased [...] elevated), previously counseled Recommendations [x] Amniocentesis for CARDIOLOGY ASSOCIATE and CMV testing offered - declines [x] Offered serum CMV testing - declines - q3 week growths - 2x/weekly testing with 1x/weekly dopplers/[facility] - [facility] precautions reviewed 05/30/2022: EFW 27%, AC 59%, [...] amniocentesis - declines [x] options discussed [x] [facility], referral placed - scheduled 04/24 at 10am via phone per pt preference Maternal varicella, non-immune 03/15/2022 Overview (04/09/2022): Per [facility] records, history of chicken pox at 5-6yo. For varivax PP. Supervision of high-risk , second trime ster 03/15/2022 Overview (06/02/2022): [x] Full [x] Blue Team- email for global sent 06/02 Referring Provider: Yariel Bird [phone] [] or Medicare Insurance [x] Dating Criteria: [...] at 39 weeks for breech presentation, declines victorino- MFM RN to schedule- requested for 06/09 at 11:30 [x] Place of delivery: [facility]- pt request [x] MOC: Nexplanon [x] Method of feeding: likely formula but considering breast [x] Patient Care Associate: discussed [] PP Depression Discussed: Immunizations Immunization Administration Dates Next Due Varicella 06/11/2022 Medical History Medical History Date Comments HSV (herpes simplex virus) infection per records Maternal varicella, non-immune Social History Tobacco Use Types Packs/Day Years Used Date Smoking Tobacco: Never Smokeless Tobacco: Never Tobacco Cessation:Counseling Given: Not Answered Social Connection and Isolation Panel Answer Date Recorded In a typical week, how many times do you talk on the phone with family, friends, or neighbors? More than three times a week 06/09/2022 How often do you get togethe r with friends or relatives? Three times a week 06/09/2022 How often do you attend chur ch or latter-day services? Never 06/09/2022 Do you belong to any clubs o r organizations such as quaker groups, unions, fraternal or athletic groups, or [...] place to sleep or slept in a fdc (including now)? No 06/09/2022 Personal Safety Answer Date Recorded Have you ever been in or are you currently in a harmful physical or emotional relationship or is someone making you feel afraid or unsafe? Denies 07/15/2023 Comments No Sex and Gender Information Value Date Recorded Sex Assigned at Not on file Legal Sex Female 12:23 PM INFORMATION OPERATOR Gender Identity Not on file Sexual Orientation [...] 9 OUMOU ,GIRL JAErika Graham MD Delivery Location:[facility] Main C ampus ([facility] L AND D PROCEDURE) Last Filed Vital Signs Vital Sign Reading Time Taken Comments Blood Pressure 136/71 07/15/2023 12:30 PM INFORMATION OPERATOR Pulse 78 07/15/2023 12:30 PM INFORMATION OPERATOR Temperature 37.1 C (98.7 F) 07/15/2023 9:11 AM INFORMATION OPERATOR Respiratory Rate 16 07/15/2023 12:30 PM INFORMATION OPERATOR Oxygen Saturation 100% 07/15/2023 12:30 PM INFORMATION OPERATOR Inhaled Oxygen Concentration - - Weight 77.1 kg (170 lb) 07/15/2023 9:11 AM INFORMATION OPERATOR Height 167.6 cm (5' 6) 07/15/2023 9:11 AM INFORMATION OPERATOR Body Mass Index 27.44 07/15/2023 9:11 AM INFORMATION OPERATOR Plan of Treatment Health Maintenance Due Date Last Done Comments Cervical Cancer Screening 1999 Depression Screening 1999 Regular Well Visit/Exam 18-64 2017 Varicella Vaccines (2 of 2 - 13+ 2-dose series) 07/09/2022 06/11/2022 DTaP/Tdap/Td Vaccine (5 - Td or Tdap) 02/14/2023 02/14/2013, 04/30/2007, 10/17/2006, Additional history exists Influenza Vaccine (#1) 2025 02/14/2013 Hepatitis B Screening Completed 10/17/2006 , [...] Relevant to Health [place] [address] [employer] [facility] Advance Directives For more information, please contact: [phone] * Full Code (Latest Code Status on File) Date Activated Date Inactivated Comments 06/09/2022 4:51 AM 06/11/2022 9:15 PM * Full Code Date Activated Date Inactivated Comments 06/08/2022 8:21 PM 06/09/2022 4:51 AM Full CPR in case of cardiopulmonary arrest Care Teams Evp Global Product Leadership Relationship Specialty Start Date End Date Unknown, Notinfile PCP - General 10/31/21 Viviane Mcneill MD [address] [place] [address] Family Medicine 04/16/17
--- OUTSIDE RECORDS SUMMARY | 2025-04-19 10:55 | XMS_ITS | Clinical Summary ---
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 Height 167.6 cm (5' 6) 04/16/2022 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 Body Mass Index 27.76 04/16/2022 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
[2025-04-19 10:56] VITALS: BP 134/97; PULSE 73; RESP 14; TEMP 36.6; O2SAT 100
--- NOTE | 2025-04-19 11:25 | ED_ITS ---
HPI - Female Genitourinary General Chief complaint: Urogenital-Female Stated complaint: dishcarge issues Time Seen by Provider: 04/19/25 11:00 Source: patient and RN notes reviewed Mode of arrival: ambulatory Limitations: no limitations History of Present Illness HPI Narrative: 25-year-old female patient presents Express Care complaining of vaginal discharge for 3-4 days. Patient reports and off white vaginal discharge is foul-smelling, she describes discharge as watery. Patient denies any vaginal irritation, itchiness, pelvic pain course, nausea vomiting, diarrhea, urinary symptoms, frequency, hesitancy, flank pain, fevers, body aches, chills, abdominal pain, or any other symptoms. Tried [id number] Monistat for yeast infection without relief. Patient says she has been sexually active for the last 2 months but she did have unprotected sex. Patient does not have any concerns for STDs. Patient denies any significant past medical history. Related Data Allergies Allergy/AdvReac Type Severity Reaction Status Date / Time No Known Allergies Allergy Verified 04/19/25 10:58 Review of Systems Review of Systems: CONSTITUTIONAL: Denies fever, chills, or sweats. EYES: Denies visual changes, redness, or discharge. ENT: Denies rhinorrhea, congestion, sore throat, or otalgia. CARDIOVASCULAR: Denies chest pain, palpitations, or edema. RESPIRATORY: Denies cough or dyspnea. GASTROINTESTINAL: Denies abdominal pain, nausea, vomiting, or diarrhea. GENITOURINARY: Denies dysuria, frequency, hesitancy, vaginal irritation, vaginal bleeding, vaginal itchiness, pelvic pain, or hematuria. Positive vaginal discharge. SKIN: Denies rash or itching. MUSCULOSKELETAL: Denies back pain, joint pain, or myalgia. NEUROLOGIC: Denies headache, numbness, or weakness. PSYCHIATRIC: Denies anxiety or depression. All other systems reviewed are negative, except as documented in HPI. PMFSH Comments At the time of my signature, I reviewed and agree with the nursing past medical, surgical, social, and family history. There is no relevant family history pertinent to the patient complaint. Exam Narrative: GENERAL: This is a well-nourished, well-developed adult, in no apparent distress. They are non ill-appearing, nontoxic appearing. HEAD: normocephalic, atraumatic. EYES: Sclera clear/white. Conjunctiva normal. Vision is grossly intact. Extraocular movements intact EARS: External ears normal, Hearing grossly intact. NOSE: External nose normal THROAT: Mucous membranes moist, NECK: Neck supple, CARDIOVASCULAR: Regular rate and rhythm RESPIRATORY: Respiratory rate normal, respiratory effort nonlabored, no respiratory distress GASTROINTESTINAL: Abdomen soft, non-tender, nondistended. GENITOURINARY: Deferred SKIN: warm, Dry, intact with no suspicious lesions or rash, good texture and turgor. NEURO: awake, alert, and oriented to person, place and time. There were no obv ious focal neurologic abnormalities. EXTREMITIES: No joint tenderness, effusion, or edema noted. BACK: Nontender without deformity. Course Course Emergency Course: Portions of this record may have been created with voice recognition software Level of Care: Express Care Visit Vital Signs Vital signs: Vital Signs Temperature 97.8 F 04/19/25 10:56 Pulse Rate 73 04/19/25 10:56 Respiratory Rate 14 04/19/25 10:56 Blood Pressure 134/97 H 04/19/25 10:56 Pulse Oximetry 100 04/19/25 10:56 Oxygen Delivery Room Air 04/19/25 10:56 Temperature 97.8 F 04/19/25 10:56 Pulse Rate 73 04/19/25 10:56 Respiratory Rate 14 04/19/25 10:56 Blood Pressure 134/97 H 04/19/25 10:56 Pulse Oximetry 100 04/19/25 10:56 Oxygen Delivery Room Air 04/19/25 10:56 Reviewed MDM - Female Genitourinary MDM Narrative Medical decision making narrative: Urine dipstick showed evidence of leukocytes and protein, patient is having no urinary symptoms. A urine culture is pending. Patient to self swab for chla mydia, gonorrhea, Trichomonas, bacterial vaginosis, and genital culture. Patient's symptoms are clinically consistent with BV. Patient would like to go ahead and start treatment for BV. Patient will wait for further treatment for prior to culture results. Will send a prescription of metronidazole to pharmacy. Discussed physical exam findings. Advised supportive measures and signs/symptoms to go to the ER. Pt is appropriate for outpt treatment and f/u. Differential Diagnosis Differential diagnosis: Likely urinary tract infection, bacterial vaginosis, trichomoniasis and vaginitis Lab Data Attestation: I reviewed the patient's lab results. Critical Care Time Critical Care Time Critical Care Time: No Discharge Plan Discharge Clinical Impression: Bacterial vaginosis Patient Disposition: Home Condition: Stable Instructions: Antibiotic Form, Bacterial Vaginosis (ED) Additional Instructions: A urine culture is pending. A sample has been sent off to test for gonorrhea, chlamydia, and trichomonas, bacterial vaginosis swab and genital culture to look for infection. ?These tests can take up to 1-3 days to come back. Take metronidazole as directed. Finish the course completely even if your symptoms improved. Do not drink alcohol with this medication as it may make you very ill. You Will be notified the results once they have resulted. Please remain abstinent until you know your results or have completed full treatment for an STD. Follow-up with PCP or OBGYN in 3-5 days. If your symptoms worsen, you developed fever, abdominal pain, nausea, vomiting, vaginal bleeding, pelvic pain or any other concerns please go to the ER immediately. Patient Language: Lithuanian Prescriptions: New metronidazole 500 mg tablet 500 mg PO BID 7 Days Qty: 14 0RF Follow-up/Referrals: PHYSICIAN,PARIMUTUEL TICKET CHECKER [Primary Care Provider, Internal Medicine] Time of Disposition: 11:15
[2025-04-19 11:33] LABS: EDUAAPPEAR Cloudy; EDUABILI 1+ (Negative); EDUABLOOD Negative (Negative); EDUACOLOR1 Dark; EDUAGLUCOSE Negative (Negative); EDUAKETONE Trace (Negative); EDUALEUKO 1+ (Negative); EDUANITRATE Negative (Negative); EDUAPH 6.0; EDUAPROTEIN 2+ (Negative); EDUASPGRAVITY 1.030; EDUAUROBILI 1.0
[2025-04-19 19:06] LABS: Trichomonas Vag PCR DETECTED (NOT DETECTE)
== END 2025-04-19 11:32 | disposition home or self-care (01) ==
DX: N76.0 Acute vaginitis (principal); Z11.3 Encounter for screening for infections with a predominantly sexual mode of transmission
CPT/HCPCS: 81003; 87086; 87491; 87591; 87661; 87798; 99213; G0463